=== PATIENT | female | born 1980 | race Caucasian/White ===

== ENCOUNTER 2018-10-22 20:49 | Inpatient (IN) | payer OTHER ==
--- NOTE | 2018-10-22 21:14 | PDOC ---
Rapid Medical Evaluation Chief Complaint: Chest Pain Time Seen by Provider: 10/22/18 21:07 Medical Evaluation: Allergies Allergy/AdvReac Type Severity Reaction Status Date / Time No Known Allergies Allergy Verified 10/22/18 21:06 Vital Signs Temp Pulse Resp BP Pulse Ox 98.1 F 75 18 112/74 97 10/22/18 21:03 10/22/18 21:03 10/22/18 21:03 10/22/18 21:03 10/22/18 21:03 10/22/18 21:09 I have performed a brief in-person evaluation of this patient. The patient presents with a chief complaint of: lower mid-sternal localized chest pain with pain to epigastric region and nausea x 5 days. saw GI who started on treatment with nexium for GERD and report symptoms persist and worsening since last night Pertinent physical exam findings: A&O x 3. mild epigastric pain w/o gaurding or rebound I have ordered the following: EKG, cbc,cmp, cardiac profile The patient will proceed to the ED for further evaluation Discharge Disposition - Diagnosis Epigastric abdominal pain, Nausea and vomiting Chest pain Qualifiers: Chest pain type: unspecified Qualified Code(s): R07.9 - Chest pain, unspecified - Discharge Dispostion Condition at time of disposition: Stable - Referrals - Patient Instructions - Post Discharge Activity
[2018-10-22 21:33] LABS: BASO % 0.5 % (0-2.0); EOS % 0.4 % (0-4.5); HEMATOCRIT 40.4 % (32.4-45.2); HEMOGLOBIN 13.4 GM/dL (10.7-15.3); LYMPH % 17.4 % (8-40); MCH 28.9 pg (25.7-33.7); MCHC 33.3 g/dl (32.0-36.0); MEAN CELL VOLUME 86.9 fl (80-96); MEAN PLT VOLUME 9.9 fl (7.5-11.1); MONO % 6.1 % (3.8-10.2); NEUT % 75.6 % (42.8-82.8); PLATELET COUNT 238 K/MM3 (134-434); RBC 4.64 M/mm3 (3.60-5.2); RDW 13.5 % (11.6-15.6); WHITE BLOOD COUNT 10.7 K/mm3 (4.0-10.0)
[2018-10-22] MEDS ORDERED: LIDOCAINE VISCOUS 2% ORAL/TOP 20 ML UNIT-DOSE CUP PO ONE (21:39)
[2018-10-22] MEDS ORDERED: MAG HYDROX/AL HYDROX/SIMETH 30 ML UNIT-DOSE CUP PO ONE (21:39)
[2018-10-22] MEDS ORDERED: LIDOCAINE VISCOUS 2% ORAL/TOP 20 ML UNIT-DOSE CUP ONE (21:42)
[2018-10-22] MEDS ORDERED: MAG HYDROX/AL HYDROX/SIMETH 30 ML UNIT-DOSE CUP ONE (21:43)
[2018-10-22] MEDS ORDERED: ONDANSETRON *ODT* 4 MG TABLET SL ONE (21:46)
[2018-10-22] MEDS ORDERED: ONDANSETRON *ODT* 4 MG TABLET ONE (21:47)
[2018-10-22 22:07] LABS: ALBUMIN 4.1 g/dl (3.4-5.0); ALK PHOS 71 U/L (45-117); ANION GAP 10 MMOL/L (8-16); BILIRUBIN,TOTAL 0.3 mg/dL (0.2-1); BLOOD UREA NITROGEN 16 mg/dL (7-18); CALCIUM 9.3 mg/dL (8.5-10.1); CHLORIDE 105 mmol/L (98-107); CO2 22 mmol/L (21-32); CREATININE 0.6 mg/dL (0.55-1.3); GLUCOSE,RANDOM 138 mg/dL (74-106); POTASSIUM 3.6 mmol/L (3.5-5.1); SGOT/AST 12 U/L (15-37); SGPT/ALT 23 U/L (13-61); SODIUM 137 mmol/L (136-145); TOT PROT 8.4 g/dl (6.4-8.2)
--- NOTE | 2018-10-22 22:31 | PDOC ---
History of Present Illness - General Chief Complaint: Chest Pain Stated Complaint: CHEST PAIN Time Seen by Provider: 10/22/18 21:07 History Source: Patient Exam Limitations: No Limitations - History of Present Illness Initial Comments: 10/22/18 21:58 HISTORY OF PRESENT ILLNESS: 38-year-old female presents emergency department for evaluation of 4 days of epigastric pain. Patient reports the pain has been constant at 10/10 over the 4 days. Patient does not murmur when she was doing when the pain had started but denies any aggravating or alleviating factors. Patient reports she has felt nauseous and has had 4 episodes of vomiting. Patient reports the vomitus was bilious but had not eaten prior to the vomiting. She denies any shortness of breath or cough. Patient was seen by financial administrator who started her on Reglan and told her to take Nexium. No recent travel or sick contacts. PAST MEDICAL HISTORY: Denies past medical history SURGICAL HISTORY: Denies ALLERGIES: No known drug allergies REVIEW OF SYSTEMS General/Constitutional: Denies fever or chills. Denies weakness, weight change. HEENT: Denies change in vision. Denies ear pain or discharge. Denies sore throat. Cardiovascular: Denies chest pain or shortness of breath. Respiratory: Denies cough, wheezing, or hemoptysis. Gastrointestinal: see HPI Genitourinary: Denies dysuria, frequency, or change in urination. Musculoskeletal: Denies joint or muscle swelling or pain. Denies neck or back pain. Skin and breasts: Denies rash or easy bruising. Neurologic: Denies headache, vertigo, loss of consciousness, or loss of sensation. Psychiatric: Denies depression or anxiety. Endocrine: Denies increased thirst. Denies abnormal weight change. Hematologic/Lymphatic: Denies anemia, easy bleeding, or history of blood clots. Allergic/Immunologic: Denies hives or skin allergy. Denies latex allergy. PHYSICAL EXAM General Appearance: Well-appearing, appropriately dressed. No apparent distress , no intoxication. HEENT: EOMI, PERRLA, normal ENT inspection, normal voice, TMs normal, pharynx normal. No conjunctival pallor. No photophobia, scleral icterus. Neck: Supple. Trachea midline. No tenderness, rigidity, carotid bruit, stridor , lymphadenopathy, or thyromegaly. Respiratory/Chest: Lungs CTAB. No shortness of breath, chest tenderness, respiratory distress, accessory muscle use. No crackles, rales, rhonchi, stridor , wheezing, dullness Cardiovascular: RRR. S1, S2. No JVD, murmur, bradycardia, tachycardia. Vascular Pulses: Dorsalis-Pedis (R): 2+, Dorsalis-Pedis (L): 2+ Gastrointestinal/Abdominal: Normal bowel sounds. Abdomen soft nondistended. Tenderness present to bilateral upper quadrants and the epigastrium. No rebound tenderness noted. No guarding or hernias noted. Lymphatic: No adenopathy, tenderness. Musculoskeletal/Extremities: Normal inspection. FROM of all extremities, normal capillary refill. Pelvis Stable. No CVA tenderness. No tenderness to extremities, pedal edema, swelling, erythema or deformity. Integumentary: Appropriate color, dry, warm. No cyanosis, erythema, jaundice or rash Neurologic: school fundraising director II-XII intact. Fully oriented, alert. Appropriate mood/affect. Motor strength 5/5. No appreciable EOM palsy, facial droop or sensory deficit. Past History - Past Medical History Allergies/Adverse Reactions: Allergies Allergy/AdvReac Type Severity Reaction Status Date / Time No Known Allergies Allergy Verified 10/22/18 21:06 Home Medications: Ambulatory Orders Acetaminophen [Tylenol .Regular Strength -] 650 mg PO Q6H PRN #0 tablet Vitamins (Sjr) - 1 tab PO DAILY #0 tablet 08/23/13 COPD: No - Reproductive History (#): 1 Para: 0 - Suicide/Smoking/Psychosocial Hx Smoking History: Never smoked Have you smoked in the past 12 months: No Hx Alcohol Use: No Drug/Substance Use Hx: No Substance Use Type: None *Physical Exam - Vital Signs Last Vital Signs Temp Pulse Resp BP Pulse Ox 98.1 F 75 18 112/74 97 10/22/18 21:03 10/22/18 21:03 10/22/18 21:03 10/22/18 21:03 10/22/18 21:03 ED Treatment Course - LABORATORY CBC & Chemistry Diagram: 10/22/18 21:17 10/22/18 21:17 - ADDITIONAL ORDERS Additional order review: Laboratory Results 10/22/18 21:17 Creatine Kinase Cancelled Troponin I Cancelled 10/22/18 21:17 RBC 4.64 MCV 86.9 MCHC 33.3 RDW 13.5 MPV 9.9 Neutrophils % 75.6 Lymphocytes % 17.4 D Monocytes % 6.1 Eosinophils % 0.4 D Basophils % 0.5 - RADIOLOGY Radiology Studies Ordered: Category Date Time Status ABDOMEN US -LIMITED [US] Stat Ultrasound 10/22/18 21:47 Ordered - Medications Given in the ED: ED Medications Discontinued Medications Generic Name Dose Route Start Last Admin Trade Name Henriq PRN Reason Stop Dose Admin Al Hydroxide/Mg Hydroxide 30 ml 10/22/18 21:39 10/22/18 21:47 Mylanta Oral Suspension - PO 10/22/18 21:40 30 ml ONCE ONE Administration Lidocaine HCl 20 ml 10/22/18 21:39 10/22/18 21:47 Xylocaine 2% Viscous Oral - PO 10/22/18 21:40 20 ml ONCE ONE Administration Ondansetron HCl 4 mg 10/22/18 21:46 10/22/18 21:47 Zofran Odt - SL 10/22/18 21:47 4 mg ONCE ONE Administration Medical Decision Making - Medical Decision Making 10/22/18 22:31 A/P: 38-year-old woman with epigastric pain for 4 days Differential diagnosis includes but is not limited to-ACS, pancreatitis, hepatitis, cholecystitis, cold of cholelithiasis, GERD, pneumonia Labs including cardiac profile and lipase Urinalysis, urine culture, and urine EKG Chest x-ray Right upper quadrant ultrasound Viscous lidocaine Maalox Reassess 10/23/18 00:44 Ultrasound as read by imaging solution sales senior executive: Moderate suspicion for cholecystitis, possibly due to a 2.3 cm stone impacted in the gallbladder neck. Dr. Torres has been contacted who requested the patient is NPO for OR tomorrow. Patient does not have a primary doctor and will admit [facility]. 10/23/18 01:59 Case has been discussed with the hospitalist service who accepts patient for [facility] admission. *DC/Admit/Observation/Transfer Diagnosis at time of Disposition: Cholecystitis - Discharge Dispostion Condition at time of disposition: Stable Decision to Admit order: Yes - Referrals - Patient Instructions - Post Discharge Activity
[2018-10-22 22:42] LABS: LIPASE 101 U/L (73-393)
[2018-10-23] MEDS ORDERED: morphine CARPU-JECT 4 MG/1 ML DISP.SYRIN IVPUSH ONE (00:45)
[2018-10-23] MEDS ORDERED: ONDANSETRON 4 MG/2 ML VIAL IVPUSH ONE ×2 (00:45→09:27)
[2018-10-23] MEDS ORDERED: morphine SULFATE 4 MG/ML VIAL ONE (00:58)
[2018-10-23] MEDS ORDERED: ONDANSETRON 4 MG/2 ML VIAL ONE (00:58)
[2018-10-23] MEDS: SODIUM CHLORIDE 1,000 ML IV SCH ×2 (01:02→09:02)
[2018-10-23] MEDS ORDERED: MORPHINE SULFATE 2 MG/ML VIAL IVPUSH PRN (02:12)
[2018-10-23 02:22] LABS: INR 1.17 (0.83-1.09); PROTHROMBIN TIME (PATIENT) 13.8 SEC (9.7-13.0)
--- NOTE | 2018-10-23 02:22 | PN ---
Teaching Attending Note Name of Resident: Jose Marin ATTENDING PHYSICIAN STATEMENT I saw and evaluated the patient. I reviewed the resident's note and discussed the case with the resident. I agree with the resident's findings and plan as documented. SUBJECTIVE: Patient is a 38-year-old woman presents emergency department for evaluation of 4 days of constant epigastric and RUQ abdominal. Patient reports the pain had been off and on for a couple of months, but became constant at 10/10 over the 4 days. Patient denies any aggravating or alleviating factors. Patient reports she has felt nauseous and has had 4 episodes of vomiting. Patient reports the vomitus was bilious but had not eaten prior to the vomiting. She denies any shortness of breath or cough. Patient was seen by lead portfolio manager who started her on Reglan and told her to take Nexium and had planned an EGD for 05/15. She does not drink alcohol, smoke or use illicit drugs, but drinks a lot of coffee. She is , has a 4 year old daughter and works as a dental television production assistant. Her LMP was last week. Her pain was relieved with 4 mg IV morphine in the ER. OBJECTIVE: Alert Vital Signs Period Temp Pulse Resp BP Sys/[place] Pulse Ox Last 24 Hr 98.1 F 75 18 112/74 97 HEENT: No Jaundice, eye redness or discharge, PERRLA, EOMI. Normocephalic, atraumatic. External ears are normal and hearing is grossly intact. No nasal discharge. Neck: Supple, nontender. No palpable adenopathy or thyromegaly. No JVD Chest: Good effort. Clear to auscultation and percussion. Heart: Regular. No S3, rub or murmur Abdomen: Not distended, soft, nontender and no HSM. No rebound or guarding. Normal bowel sounds. Ext: Peripheral pulses intact. No leg edema. Skin: Warm and dry. No petechiae, rash or ecchymosis. Neuro: Alert. Oriented x3. CN 2-12 grossly intact. Sensation grossly intact in all four extremities and DTR are symmetric. Psych: Appropriate mood and affect. Good insight. Current Medications Generic Name Dose Route Start Last Admin Trade Name Freq PRN Reason Stop Dose Admin Sodium Chloride 1,000 mls @ 125 mls/hr 10/23/18 00:45 10/23/18 01:02 Normal Saline - IV 125 mls/hr ASDIR LAUREEN Administration Piperacillin Sod/Tazobactam 50 mls @ 100 mls/hr 10/24/18 02:00 Sod 3.375 gm/ Dextrose IVPB Q8H-IV LAUREEN Protocol Piperacillin Sod/Tazobactam 50 mls @ 100 mls/hr 10/23/18 02:30 Sod 3.375 gm/ Dextrose IVPB 10/23/18 18:29 Q8H-IV LAUREEN Protocol Morphine Sulfate 2 mg 10/23/18 02:12 Morphine Sulfate IVPUSH Q4H PRN PAIN LEVEL 6-10 Home Medications Medication Instructions Recorded Acetaminophen [Tylenol .Regular 650 mg PO Q6H PRN #0 tablet 08/23/13 Strength -] Vitamins (Sjr) - 1 tab PO DAILY #0 tablet 08/23/13 Abnormal Lab Results 10/22/18 10/22/18 10/23/18 21:17 21:17 01:30 WBC 10.7 H Absolute Neuts (auto) 8.1 H PT with INR 13.80 H INR 1.17 H Random Glucose 138 H AST 12 L Total Protein 8.4 H ASSESSMENT AND PLAN: 1. Cholecystitis and cholelithiasis - Ultrasound as read by imaging international coordinator showed moderate suspicion for cholecystitis, possibly due to a 2.3 cm stone impacted in the gallbladder neck. Surgeon -Dr. Torres consulted by the ER staff. Being kept NPO for surgery tomorrow. Will treat with IV NS, IV Zosyn and get INR and use IV morphine 2 mg q 6 hours PRN for pain control. EKG shows NSR with T- wave inversion in V1-3. Troponin is negative. Repeat EKG pending. 2. DVT prophylaxis - Lovenox 40 mg SQ q 24 hours. 3. Advance directives - Full code
[2018-10-23] MEDS ORDERED: PIPERACILLIN/TAZOB 3.375 GM 3.375 GM/50 ML BAG IVPB ONE (02:43)
[2018-10-23] MEDS: PIPERACILLIN/TAZOB 3.375 GM 3.375 GM in DEXTROSE 5%-WATER - 50 ML IVPB SCH ×4 (02:49→23:33)
[2018-10-23 02:53] LABS: MAGNESIUM 2.1 mg/dL (1.8-2.4); PHOSPHOROUS 2.6 mg/dL (2.5-4.9)
--- NOTE | 2018-10-23 03:41 | HP ---
CHIEF COMPLAINT: chest/ epigastric pain(points) PCP: HISTORY OF PRESENT ILLNESS: Pt. is a 38 y.o. F presenting with a 2 month history of intermittent abdominal pain. Pt. states that since Friday the pain has gotten worse and has been constant. Pt. states rd ton Friday she went to see a customer contact sales associate who scheduled an EGD for 11/04 and prescribed her reglan and nexium which the Pt. denies helped her pain. Pt. then decided to come to the ER. Abdominal US was positive for a 2.3 cm stone in the gallbladder neck mildly suspicious for cholecystitis. Pt. endorses nausea and vomiting x 4 with the last time being @ 5:30pm. Pt. states that after the bilious vomit she spat up a minute amount of blood. Pt. denies coughing or vomiting any more blood. Pt. endorses decreased PO intake due to decreased appetite, dizziness, and chills. Pt. denies any diarrhea, constipation, fever, blood in the stool or urine. ER course was notable for: (1) labs, EKG, Abd. Us (2)Zofran, Morphine (3)Surgery Consult Recent Travel: No PAST MEDICAL HISTORY: GERD? PAST SURGICAL HISTORY: Denies Social History: Smoking: Denies Alcohol: Denies Drugs:Denies Diet: Pt. endorses fatty food diet and drinking lots of iced coffee daily. Family History: Denies Allergies No Known Allergies Allergy (Verified 10/22/18 21:06) HOME MEDICATIONS: Home Medications Medication Instructions Recorded Acetaminophen [Tylenol .Regular 650 mg PO Q6H PRN #0 tablet 08/23/13 Strength -] Vitamins (Sjr) - 1 tab PO DAILY #0 tablet 08/23/13 REVIEW OF SYSTEMS As per HPI PHYSICAL EXAMINATION Vital Signs - 24 hr 10/22/18 10/23/18 21:03 02:46 Temperature 98.1 F 98.6 F Pulse Rate 75 Pulse Rate [ 78 Apical] Respiratory 18 18 Rate Blood Pressure 112/74 Blood Pressure 117/69 [Left] O2 Sat by Pulse 97 98 Oximetry (%) GENERAL: Awake, alert, and fully oriented, in no acute distress. HEAD: Normal with no signs of trauma. EYES: Pupils equal, round and reactive to light, extraocular movements intact, sclera anicteric, conjunctiva clear. EARS, NOSE, THROAT: Ears normal, nares patent, oropharynx clear without exudates. Moist mucous membranes. NECK: Normal range of motion, supple without lymphadenopathy, JVD, or masses. LUNGS: Breath sounds equal, clear to auscultation bilaterally. No wheezes, and no crackles. No accessory muscle use. HEART: Regular rate and rhythm, normal S1 and S2 without murmur, rub or gallop. ABDOMEN: Soft, RUQ and epigastric tenderness, not distended, normoactive bowel sounds, no guarding, no rebound, Scott + MUSCULOSKELETAL: Normal range of motion at all joints. No bony deformities or tenderness. No CVA tenderness. UPPER EXTREMITIES: 2+ radial pulses, warm, well-perfused. No cyanosis. No clubbing. No peripheral edema. LOWER EXTREMITIES: 2+ dorsal pedal pulses, warm, well-perfused. No calf tenderness. No peripheral edema. NEUROLOGICAL: Normal speech. PSYCHIATRIC: Cooperative. Good eye contact. Appropriate mood and affect. SKIN: Warm, dry, normal turgor, no rashes or lesions noted, normal capillary refill. Laboratory Results - last 24 hr 10/22/18 10/22/18 10/22/18 21:17 21:17 21:17 WBC 10.7 H RBC 4.64 Hgb 13.4 Hct 40.4 D MCV 86.9 MCH 28.9 MCHC 33.3 RDW 13.5 Plt Count 238 D MPV 9.9 Absolute Neuts (auto) 8.1 H Neutrophils % 75.6 Lymphocytes % 17.4 D Monocytes % 6.1 Eosinophils % 0.4 D Basophils % 0.5 Nucleated RBC % 0 PT with INR INR Sodium 137 Potassium 3.6 Chloride 105 Carbon Dioxide 22 Anion Gap 10 BUN 16 Creatinine 0.6 Creat Clearance w eGFR 111.88 Random Glucose 138 H Calcium 9.3 Total Bilirubin 0.3 AST 12 L ALT 23 Alkaline Phosphatase 71 Creatine Kinase 72 Cancelled Troponin I < 0.02 Cancelled Total Protein 8.4 H Albumin 4.1 Lipase 101 Urine HCG, Qual 10/22/18 10/22/18 10/23/18 22:30 22:57 01:30 WBC RBC Hgb Hct MCV MCH MCHC RDW Plt Count MPV Absolute Neuts (auto) Neutrophils % Lymphocytes % Monocytes % Eosinophils % Basophils % Nucleated RBC % PT with INR 13.80 H INR 1.17 H Sodium Potassium Chloride Carbon Dioxide Anion Gap BUN Creatinine Creat Clearance w eGFR Random Glucose Calcium Total Bilirubin AST ALT Alkaline Phosphatase Creatine Kinase Troponin I Total Protein Albumin Lipase Cancelled Urine HCG, Qual Negative ASSESSMENT/PLAN: Pt. is a 38 y.o. F presenting with a 2 month history of intermittent abdominal pain that has acutely worsened in the last 4 days. #Abdominal Pain Likely cholecystitis given Abd. US findings Surgery consult (Dr. Torres) appreciated IVF Morphine 2mg Q4H Zofran 4mg Q4H PRN EKG x 2 showed normal QTc however chronic TWI in V1-V3 Tank Tender Pt. on Diet and nutrition #FEN NS@125 monitor electrolytes and replete as needed NPO #DVT Ppx. SCDs only, for OR in AM Visit type - Emergency Visit Emergency Visit: Yes ED Registration Date: 10/23/18 Care time: The patient presented to the Emergency Department on the above date and was hospitalized for further evaluation of their emergent condition. - New Patient This patient is new to me today: Yes Date on this admission: 10/23/18 - Critical Care Critical Care patient: No
[2018-10-23] MEDS ORDERED: traMADol HCL 50 MG TABLET PO ONE (06:31)
--- NOTE | 2018-10-23 07:20 | PN ---
Physical Exam: SUBJECTIVE: Patient seen and examined at bedside. no acute events since admission. c/o abd pain. NPO for OR today. denies fever, chills, cp, sob, diarrhea, urinary sxs OBJECTIVE: Vital Signs Period Temp Pulse Resp BP Sys/[place] Pulse Ox Last 24 Hr 97.8 F-98.8 F 66-78 18-18 103-117/69-74 97-98 GENERAL: AOX3 NAD HEAD: NCAT EYES: Pupils equal, round and reactive to light, extraocular movements intact, sclera anicteric, conjunctiva clear. EARS, NOSE, THROAT: Ears normal, nares patent, oropharynx clear without exudates. Moist mucous membranes. NECK: Normal range of motion, supple without lymphadenopathy, JVD, or masses. LUNGS: CTAB HEART: RRR, normal S1 and S2 without murmur, rub or gallop. ABDOMEN: Soft, RUQ and epigastric tenderness, not distended, normoactive bowel sounds, no guarding, no rebound, Scott + MUSCULOSKELETAL: Normal range of motion at all joints. No bony deformities or tenderness. No CVA tenderness. UPPER EXTREMITIES: 2+ radial pulses, warm, well-perfused. No cyanosis. No clubbing. No peripheral edema. LOWER EXTREMITIES: 2+ dorsal pedal pulses, warm, well-perfused. No calf tenderness. No peripheral edema. NEUROLOGICAL: Normal speech. strength sensation grossly intact PSYCHIATRIC: Cooperative. Good eye contact. Appropriate mood and affect. SKIN: Warm, dry, normal turgor, no rashes or lesions noted, normal capillary refill. Laboratory Results - last 24 hr 10/22/18 10/22/18 10/22/18 21:17 21:17 21:17 WBC 10.7 H RBC 4.64 Hgb 13.4 Hct 40.4 D MCV 86.9 MCH 28.9 MCHC 33.3 RDW 13.5 Plt Count 238 D MPV 9.9 Absolute Neuts (auto) 8.1 H Neutrophils % 75.6 Lymphocytes % 17.4 D Monocytes % 6.1 Eosinophils % 0.4 D Basophils % 0.5 Nucleated RBC % 0 PT with INR INR Sodium 137 Potassium 3.6 Chloride 105 Carbon Dioxide 22 Anion Gap 10 BUN 16 Creatinine 0.6 Creat Clearance w eGFR 111.88 Random Glucose 138 H Calcium 9.3 Phosphorus Magnesium Total Bilirubin 0.3 AST 12 L ALT 23 Alkaline Phosphatase 71 Creatine Kinase 72 Cancelled Troponin I < 0.02 Cancelled Total Protein 8.4 H Albumin 4.1 Lipase 101 Urine HCG, Qual Blood Type Antibody Screen 10/22/18 10/22/18 10/23/18 22:30 22:57 01:30 WBC RBC Hgb Hct MCV MCH MCHC RDW Plt Count MPV Absolute Neuts (auto) Neutrophils % Lymphocytes % Monocytes % Eosinophils % Basophils % Nucleated RBC % PT with INR 13.80 H INR 1.17 H Sodium Potassium Chloride Carbon Dioxide Anion Gap BUN Creatinine Creat Clearance w eGFR Random Glucose Calcium Phosphorus Magnesium Total Bilirubin AST ALT Alkaline Phosphatase Creatine Kinase Troponin I Total Protein Albumin Lipase Cancelled Urine HCG, Qual Negative Blood Type Antibody Screen 10/23/18 10/23/18 01:30 03:00 WBC RBC Hgb Hct MCV MCH MCHC RDW Plt Count MPV Absolute Neuts (auto) Neutrophils % Lymphocytes % Monocytes % Eosinophils % Basophils % Nucleated RBC % PT with INR INR Sodium Potassium Chloride Carbon Dioxide Anion Gap BUN Creatinine Creat Clearance w eGFR Random Glucose Calcium Phosphorus 2.6 Magnesium 2.1 Total Bilirubin AST ALT Alkaline Phosphatase Creatine Kinase Troponin I Total Protein Albumin Lipase Urine HCG, Qual Blood Type O POSITIVE Antibody Screen Negative Active Medications Generic Name Dose Route Start Last Admin Trade Name Freq PRN Reason Stop Dose Admin Sodium Chloride 1,000 mls @ 125 mls/hr 10/23/18 00:45 10/23/18 01:02 Normal Saline - IV 125 mls/hr ASDIR LAUREEN Administration Piperacillin Sod/Tazobactam 50 mls @ 100 mls/hr 10/24/18 02:00 Sod 3.375 gm/ Dextrose IVPB Q8H-IV LAUREEN Protocol Piperacillin Sod/Tazobactam 50 mls @ 100 mls/hr 10/23/18 02:30 10/23/18 02:49 Sod 3.375 gm/ Dextrose IVPB 10/23/18 18:29 100 mls/hr Q8H-IV LAUREEN Administration Protocol 1043-0004 US/ABDOMEN US -LIMITED Rule out cholecystitis Right upper abdomen ultrasound. The liver measures 16.8 cm in sagittal length with a slightly dense and coarse echotexture. Gallbladder is adequately distended without intraluminal stones the largest in the region of the gallbladder neck measuring 2.2 cm. There is mild thickening of the gallbladder wall measuring up to 5 mm without evidence of pericholecystic free fluid. No intra or extrahepatic bile duct dilatation is seen. The common bile duct measures 5 mm in diameter. The right kidney measures 10.9 cm sagittal length and appears unremarkable. Visualized portion of the pancreas appears unremarkable Visualized portion of the proximal abdominal aorta and inferior vena cava appear unremarkable. Normal flow in the main portal vein. IMPRESSION: Intraluminal stones with the largest in the region of the gallbladder neck measuring 2.2 cm with gallbladder wall thickening and without evidence of pericholecystic free fluid. Cannot rule out cholecystitis. Correlate clinically for further evaluation. ASSESSMENT/PLAN: 38 y.o. F p/w 2 month history of intermittent abdominal pain that has acutely worsened in the last 4 days. #Abdominal Pain - Likely cholecystitis given Abd. US findings Surgery consult (Dr. Torres) IVF pain ctl - dilauded 1mg q4h , tylenol IV. Morphine and tramadol have been ineffective Zofran 4mg Q6H PRN EKG x 2 showed normal QTc however chronic TWI in V1-V3, qtc 424 Sound Assistant Pt. on Diet and nutrition #FEN NS@125 monitor electrolytes and replete as needed NPO for OR #DVT Ppx. SCDs only, for OR in AM Dispo m/s Visit type - Emergency Visit Emergency Visit: Yes ED Registration Date: 10/23/18 Care time: The patient presented to the Emergency Department on the above date and was hospitalized for further evaluation of their emergent condition. - New Patient This patient is new to me today: Yes Date on this admission: 10/23/18 - Critical Care Critical Care patient: No
[2018-10-23 08:00] LABS: BASO % 0.3 % (0-2.0); EOS % 0.6 % (0-4.5); HEMATOCRIT 39.5 % (32.4-45.2); HEMOGLOBIN 13.1 GM/dL (10.7-15.3); LYMPH % 23.1 % (8-40); MCH 28.9 pg (25.7-33.7); MCHC 33.2 g/dl (32.0-36.0); MEAN CELL VOLUME 87.1 fl (80-96); MONO % 9.8 % (3.8-10.2); NEUT % 66.2 % (42.8-82.8); PLATELET COUNT 209 K/MM3 (134-434); RBC 4.53 M/mm3 (3.60-5.2); RDW 13.5 % (11.6-15.6); WHITE BLOOD COUNT 8.8 K/mm3 (4.0-10.0)
[2018-10-23 08:25] LABS: ALBUMIN 3.6 g/dl (3.4-5.0); ALK PHOS 62 U/L (45-117); ANION GAP 7 MMOL/L (8-16); BILIRUBIN,TOTAL 0.5 mg/dL (0.2-1); BLOOD UREA NITROGEN 11 mg/dL (7-18); CALCIUM 8.7 mg/dL (8.5-10.1); CHLORIDE 107 mmol/L (98-107); CO2 25 mmol/L (21-32); CREATININE 0.6 mg/dL (0.55-1.3); GLUCOSE,RANDOM 106 mg/dL (74-106); MAGNESIUM 2.4 mg/dL (1.8-2.4); PHOSPHOROUS 3.2 mg/dL (2.5-4.9); POTASSIUM 3.6 mmol/L (3.5-5.1); SGOT/AST 9 U/L (15-37); SGPT/ALT 20 U/L (13-61); SODIUM 138 mmol/L (136-145); TOT PROT 7.3 g/dl (6.4-8.2)
[2018-10-23] MEDS ORDERED: ACETAMINOPHEN 1000 MG/100 ML VIAL (NON FORMULARY) IVPB ONE ×2 (09:26→22:09)
--- NOTE | 2018-10-23 10:24 | EKG ---
Test Reason : Blood Pressure : / mmHG Vent. Rate : 056 BPM Atrial Rate : 056 BPM P-R Int : 148 ms QRS Dur : 084 ms QT Int : 440 ms P-R-T Axes : 004 030 009 degrees QTc Int : 424 ms SINUS BRADYCARDIA WITH SINUS ARRHYTHMIA NONSPECIFIC T WAVE ABNORMALITY NO PREVIOUS ECGS AVAILABLE Confirmed by TAPAN SCHREIBER MD ([id number]) on 10/23/2018 10:24:16 AM Referred By: Confirmed By:TAPAN SCHREIBER MD
--- NOTE | 2018-10-23 10:30 | EKG ---
Test Reason : Blood Pressure : / mmHG Vent. Rate : 069 BPM Atrial Rate : 069 BPM P-R Int : 156 ms QRS Dur : 078 ms QT Int : 412 ms P-R-T Axes : 062 054 033 degrees QTc Int : 441 ms NORMAL SINUS RHYTHM T WAVE ABNORMALITY, CONSIDER ANTERIOR ISCHEMIA ABNORMAL ECG NO PREVIOUS ECGS AVAILABLE Confirmed by TAPAN SCHREIBER MD ([id number]) on 10/23/2018 10:30:24 AM Referred By: Confirmed By:TAPAN SCHREIBER MD
[2018-10-23] MEDS ORDERED: ONDANSETRON 4 MG/2 ML VIAL IVPUSH PRN ×3 (11:19→22:09)
[2018-10-23] MEDS ORDERED: PIPERACILLIN/TAZOBACTAM 3.375 GM VIAL IVPB ONE ×2 (11:49→23:23)
[2018-10-23] MEDS ORDERED: DEXTROSE 5%-WATER - 50 ML IVPB ONE ×2 (11:49→23:24)
[2018-10-23] MEDS ORDERED: HYDROmorphone HCl 2 MG/ML VIAL IVPB PRN (12:46)
--- NOTE | 2018-10-23 16:59 | CONSULT ---
Consult Consult Specialty:: Surgery Reason for Consultation:: Abdominal pain , acute cholecystitis, with obstruction. - History of Present Illness Chief Complaint: Abdominal pain x 2 days, with nausea. - History Source History Provided By: Patient Limitations to Obtaining History: No Limitations - Past Medical History ...LMP: 04/29/14 ...LMP Comment: Last week ...: No - Alcohol/Substance Use Hx Alcohol Use: No - Smoking History Smoking history: Never smoked Have you smoked in the past 12 months: No Home Medications - Allergies Allergies/Adverse Reactions: Allergies Allergy/AdvReac Type Severity Reaction Status Date / Time No Known Allergies Allergy Verified 10/22/18 21:06 - Home Medications Home Medications: Ambulatory Orders Acetaminophen [Tylenol .Regular Strength -] 650 mg PO Q6H PRN #0 tablet Vitamins (Sjr) - 1 tab PO DAILY #0 tablet 08/23/13 Physical Exam Vital Signs: Vital Signs Temperature 98.5 F 10/23/18 14:53 Pulse Rate 75 10/23/18 14:53 Respiratory Rate 18 10/23/18 14:53 Blood Pressure 110/71 10/23/18 14:53 O2 Sat by Pulse Oximetry (%) 98 10/23/18 09:00 Labs: CBC, BMP 10/23/18 07:00 10/23/18 07:00 Imaging - Results Ultrasound: Report Reviewed, Image Reviewed (Gallstone impacted an the cystic duct.) Problem List - Problems (1) Calculus of gallbladder with acute cholecystitis with obstruction Code(s): K80.01 - CALCULUS OF GALLBLADDER W ACUTE CHOLECYSTITIS W OBSTRUCTION (2) Nausea and vomiting Code(s): R11.2 - NAUSEA WITH VOMITING, UNSPECIFIED (3) Nausea and vomiting Code(s): R11.2 - NAUSEA WITH VOMITING, UNSPECIFIED (4) Abdominal pain, acute, right upper quadrant Code(s): R10.11 - RIGHT UPPER QUADRANT PAIN Assessment/Plan Acute cholecystitis with obstruction . Plan : laparoscopic cholecystectomy , possible open. Patient is explained , of the procedure , with risks, benefits and complications. Consent obtained.
[2018-10-23] MEDS ORDERED: ACETAMINOPHEN 1000 MG/100 ML VIAL (NON FORMULARY) IVPB PRN ×2 (17:00→21:52)
[2018-10-23] MEDS ORDERED: BUPIVACAINE HCL/PF 0.5% (5MG/ML) 10 ML VIAL ONE (19:01)
[2018-10-23] MEDS ORDERED: PROPOFOL 20 ML ONE (19:10)
[2018-10-23] MEDS ORDERED: LIDOCAINE HCL/PF 2% SDV 5ML VIAL ONE (19:10)
[2018-10-23] MEDS ORDERED: fentaNYL CITRATE 250 MCG/5 ML VIAL ONE ×2 (19:10→20:40)
[2018-10-23] MEDS ORDERED: ROCURONIUM BROMIDE 50 MG/5 ML VIAL ONE (19:11)
[2018-10-23] MEDS ORDERED: ceFAZolin SODIUM 1 GM VIAL IVPB ONE (19:30)
--- NOTE | 2018-10-23 19:47 | PN ---
Teaching Attending Note Name of Resident: Satish Lopez ATTENDING PHYSICIAN STATEMENT I saw and evaluated the patient. I reviewed the resident's note and discussed the case with the resident. I agree with the resident's findings and plan as documented. SUBJECTIVE: Ongoing abdominal discomfort, improved nausea, no further vomiting. OBJECTIVE: Afebrile, Hemodynamically Stable. Last Vital Signs Temp Pulse Resp BP Pulse Ox 98.1 F 69 18 108/65 98 10/23/18 18:20 10/23/18 18:20 10/23/18 18:20 10/23/18 18:20 10/23/18 09:00 HEENT - Atraumatic, Normocephalic. Heart - S1, S2, RRR Lungs - clear to auscultation Abdomen - RUQ tenderness, Soft. Bowel Sounds normal. Extremities - No edema, no calf tednerness. Laboratory Results - last 24 hr 10/22/18 10/22/18 10/22/18 21:17 21:17 21:17 WBC 10.7 H RBC 4.64 Hgb 13.4 Hct 40.4 D MCV 86.9 MCH 28.9 MCHC 33.3 RDW 13.5 Plt Count 238 D MPV 9.9 Absolute Neuts (auto) 8.1 H Neutrophils % 75.6 Lymphocytes % 17.4 D Monocytes % 6.1 Eosinophils % 0.4 D Basophils % 0.5 Nucleated RBC % 0 PT with INR INR PTT (Actin FS) Sodium 137 Potassium 3.6 Chloride 105 Carbon Dioxide 22 Anion Gap 10 BUN 16 Creatinine 0.6 Creat Clearance w eGFR 111.88 Random Glucose 138 H Calcium 9.3 Phosphorus Magnesium Total Bilirubin 0.3 AST 12 L ALT 23 Alkaline Phosphatase 71 Creatine Kinase 72 Cancelled Troponin I < 0.02 Cancelled Total Protein 8.4 H Albumin 4.1 Lipase 101 Urine HCG, Qual Blood Type Antibody Screen 10/22/18 10/22/18 10/23/18 22:30 22:57 01:30 WBC RBC Hgb Hct MCV MCH MCHC RDW Plt Count MPV Absolute Neuts (auto) Neutrophils % Lymphocytes % Monocytes % Eosinophils % Basophils % Nucleated RBC % PT with INR 13.80 H INR 1.17 H PTT (Actin FS) Sodium Potassium Chloride Carbon Dioxide Anion Gap BUN Creatinine Creat Clearance w eGFR Random Glucose Calcium Phosphorus Magnesium Total Bilirubin AST ALT Alkaline Phosphatase Creatine Kinase Troponin I Total Protein Albumin Lipase Cancelled Urine HCG, Qual Negative Blood Type Antibody Screen 10/23/18 10/23/18 10/23/18 01:30 03:00 07:00 WBC 8.8 RBC 4.53 Hgb 13.1 Hct 39.5 MCV 87.1 MCH 28.9 MCHC 33.2 RDW 13.5 Plt Count 209 MPV 10.0 Absolute Neuts (auto) 5.9 Neutrophils % 66.2 Lymphocytes % 23.1 D Monocytes % 9.8 Eosinophils % 0.6 Basophils % 0.3 Nucleated RBC % 0 PT with INR INR PTT (Actin FS) Sodium Potassium Chloride Carbon Dioxide Anion Gap BUN Creatinine Creat Clearance w eGFR Random Glucose Calcium Phosphorus 2.6 Magnesium 2.1 Total Bilirubin AST ALT Alkaline Phosphatase Creatine Kinase Troponin I Total Protein Albumin Lipase Urine HCG, Qual Blood Type O POSITIVE Antibody Screen Negative 10/23/18 10/23/18 07:00 07:00 WBC RBC Hgb Hct MCV MCH MCHC RDW Plt Count MPV Absolute Neuts (auto) Neutrophils % Lymphocytes % Monocytes % Eosinophils % Basophils % Nucleated RBC % PT with INR INR PTT (Actin FS) 32.2 Sodium 138 Potassium 3.6 Chloride 107 Carbon Dioxide 25 Anion Gap 7 L BUN 11 Creatinine 0.6 Creat Clearance w eGFR 111.88 Random Glucose 106 Calcium 8.7 Phosphorus 3.2 Magnesium 2.4 Total Bilirubin 0.5 AST 9 L ALT 20 Alkaline Phosphatase 62 Creatine Kinase Troponin I Total Protein 7.3 Albumin 3.6 Lipase Urine HCG, Qual Blood Type Antibody Screen Current Medications Generic Name Dose Route Start Last Admin Trade Name Freq PRN Reason Stop Dose Admin Acetaminophen 1,000 mg 10/23/18 17:00 10/23/18 15:14 Ofirmev Injection - IVPB 1,000 mg Q6H PRN Administration PAIN LEVEL 6-10 Hydromorphone HCl 1 mg 10/23/18 12:46 Dilaudid Vial - IVPB Q4H PRN PAIN LEVEL 7 - 10 Sodium Chloride 1,000 mls @ 125 mls/hr 10/23/18 00:45 10/23/18 09:02 Normal Saline - IV 125 mls/hr ASDIR LAUREEN Administration Piperacillin Sod/Tazobactam 50 mls @ 100 mls/hr 10/24/18 02:00 Sod 3.375 gm/ Dextrose IVPB Q8H-IV LAUREEN Protocol Ondansetron HCl 4 mg 10/23/18 11:19 Zofran Injection IVPUSH Q6H PRN NAUSEA ASSESSMENT/PLAN: 38 year old female with 2 month history of intermittent abdominal discomfort, presents with 3 day history of progressively worsening RUQ/Epigastric pain with associated nausea and vomiting. She was recently seen by Gastroenterology and prescribed Nexium and Reglan, with little effect on symptoms. 1. Acute Cholecystitis Abdominal US - 2.3cm stone in GB neck with GB wall thickening Surgery consulted - for OR 10/24 IV Zofran Dilaudid/Zofran prn. NPO, IV Fluids DVT Px - SCDs (for OR in AM)
[2018-10-23] MEDS ORDERED: BUPIVACAINE HCL/PF 0.5% (5MG/ML) 10 ML VIAL IJ ONE (21:14)
[2018-10-23] MEDS ORDERED: GLYCOPYRROLATE 0.2 MG/1 ML VIAL ONE ×2 (21:17)
[2018-10-23] MEDS ORDERED: NEOSTIGMINE METHYLSULFATE 0.5 MG/ML - 10 ML MDV ONE (21:17)
--- NOTE | 2018-10-23 21:28 | OP ---
Operative Note - Note: Operative Date: 10/23/18 Pre-Operative Diagnosis: Calculus of gallbladder with Acute cholecystitis Operation: Laparoscopic cholecystectomy with extensive lysis of adhesions. Findings: Acute cholecystitis with empyema of the gallbladder, adhesions of stomach and duodenum to the gallbladder. Post-Operative Diagnosis: Other (Acute cholecystitis with obstruction and empyema of the gallbladder.) Surgeon: Aneesh Torres [employer] Consultant: Cynthia Chi Anesthesia: General Specimens Removed: Gallbladder with calculus,. Gallbladder fluid. Estimated Blood Loss (mls): 25 Operative Report Dictated: Yes
[2018-10-23] MEDS ORDERED: ACETAMINOPHEN INJECTION 100 ML IVPB ONE (21:33)
--- NOTE | 2018-10-23 21:38 | SURG ---
Surgery Community Midwife Note Community Midwife: Cynthia Chi PA-C (Suzy) Date of Service: 10/23/18 Diagnosis: Calculus of gallbladder with Acute cholecystitis Procedure: Laparoscopic cholecystectomy with extensive lysis of adhesions. I was present for the entirety of the operative procedure. For further detail, please refer to operative report.
--- NOTE | 2018-10-23 21:43 | PN ---
Progress Note (short form) - Note Progress Note: Pt s/p Lap bo for Calculus of gallbladder with Acute cholecystitis. Culture sent from OR. Pt to be initiated on Ceftriaxone 2g q24hrs, Zosyn 3.375mg q6hrs per attending. MERRITT drain in place. ID consult (Dr Otto) placed. Above d/w resident, Dr Anju Gunter
[2018-10-23] MEDS ORDERED: CEFTRIAXONE 2 GM-D5W BAG 2 GM/50 ML BAG IVPB SCH ×2 (21:45→22:00)
[2018-10-23] MEDS ORDERED: SODIUM CHLORIDE 1,000 ML IV SCH (21:52)
[2018-10-23] MEDS ORDERED: PROMETHAZINE HCL 25 MG/1 ML VIAL IVPUSH PRN (22:09)
[2018-10-23] MEDS ORDERED: CEFTRIAXONE 2 GM in DEXTROSE 5%-WATER 100 ML IVPB SCH (22:30)
[2018-10-23] MEDS ORDERED: DEXTROSE 5%-WATER 100 ML IVPB ONE (23:25)
[2018-10-24] MEDS ORDERED: PIPERACILLIN/TAZOB 3.375 GM 3.375 GM in DEXTROSE 5%-WATER - 50 ML IVPB SCH (02:00)
[2018-10-24] MEDS ORDERED: DEXTROSE 5%-WATER - 50 ML IVPB ONE ×4 (04:14→21:15)
[2018-10-24] MEDS ORDERED: PIPERACILLIN/TAZOBACTAM 3.375 GM VIAL IVPB ONE ×4 (04:14→21:15)
[2018-10-24] MEDS: PIPERACILLIN/TAZOB 3.375 GM 3.375 GM in DEXTROSE 5%-WATER - 50 ML IVPB SCH ×4 (04:16→21:50)
[2018-10-24] MEDS: oxyCODONE HCL 5 MG TABLET PO PRN ×3 (04:55→18:22)
--- NOTE | 2018-10-24 08:20 | OP ---
DATE OF OPERATION: 10/23/2018 PREOPERATIVE DIAGNOSIS: Calculus of the gallbladder with acute cholecystitis . POSTOPERATIVE DIAGNOSIS: Empyema of the gallbladder with extensive adhesions of stomach and duodenum to the gallbladder. OPERATIVE PROCEDURE: Laparoscopic cholecystectomy with extensive lysis of adhesions. SURGEON: Charley Torres MD CLIENT MANAGER [employer]: AHMET Eaton ANESTHESIA: General anesthesia. OPERATIVE DESCRIPTION: This 38-year-old woman was admitted with right upper quadrant abdominal pain, nausea and vomiting for 2 days. Patient had pain on and off in the right upper quadrant. Ultrasound suggested acute cholecystitis. Patient was brought in for laparoscopic cholecystectomy. Consent was obtained. Risks, benefits, and complications have been discussed with the patient. Patient was given general anesthesia. The abdomen was painted and draped. A 10-12-cm laparoscopic trocar was inserted through the umbilical access. Incision was made in the infraumbilical portion of the umbilicus after time-out was called. The incision was deepened through the skin and subcutaneous tissue and the linea alba. The peritoneum was incised, and the 10-12-cm laparoscopic trocar of the Nyasia type was introduced into the abdominal cavity. Two stay sutures of 2-0 Vicryl were obtained to hold the trocar into the abdominal wall. Two 5-mm trocars were inserted in the right upper quadrant of the abdomen, one along the anterior axillary line , another along the midclavicular line. Both were noted entering the abdominal cavity under direct vision with the camera in the umbilical port . Another 5-mm trocar was inserted in the midline of the subxiphoid area. This was introduced to the right of the falciform ligament and again visualized with the camera. This was later converted to a 10-mm port for insertion of a 10-mm dripper across the cystic duct. The gallbladder was very much inflamed, very edematous and thickened. The stomach and the duodenum were pulled towards the body of the gallbladder. This was carefully lysed using sharp and blunt dissection. The peritoneal reflection around the infundibulum of the gallbladder was incised and infundibulum was visualized. The gallbladder was then grasped with the grasper through the lateral 5-mm port which grasped the fundus of the gallbladder and retracted it , cephalad and laterally , thus exposing the body and infundibulum of the gallbladder. The infundibulum of the gallbladder was grasped with another grasper through the middle 5-mm port. With sharp and blunt dissection, attempt was made to identify the gallbladder at the cystic duct junction. This was deep within the gallbladder fossa. The peritoneal reflection on either side of the infundibulum of the gallbladder was then incised, and the gallbladder dissected out of the gallbladder bed with sharp and blunt dissection. Further down, attempt was made to identify the cystic duct and cystic artery. After deliberate dissection, cystic artery was identified going under the cystic duct. This was then divided between clips. The gallbladder was edematous throughout the length of the gallbladder. Prior to the procedure, the gallbladder was emptied by introducing a needle through the subxiphoid port and emptying the bile. The bile was very cloudy and murky suggesting infection and empyema. The gallbladder was very dense, densely adherent to the gallbladder fossa in the liver. After deliberate dissection, the cystic duct was isolated circumferentially. This was larger than a 5-mm diameter. Therefore, the subxiphoid port was converted to a 10-mm port, and 10-mm clipper was applied across the cystic duct. This was then divided. Prior to this, the gallbladder was dissected off the gallbladder bed all the way to the fundus of the gallbladder. Once the cystic duct was divided, the procedure was completed by dissecting the gallbladder off the gallbladder bed all the way to the fundus of the gallbladder. There was a thick peel of very edematous peritoneum and a lot of edematous fluid around the gallbladder. Hemostasis was satisfactory throughout the procedure. An EndoCatch was then introduced through the umbilical port. The gallbladder was placed in the EndoCatch and retrieved out of the abdominal cavity. It was a long thick gallbladder with 2 large calculi. The gallbladder fossa was then thoroughly irrigated with normal saline. Because of extensive edema and extensive length of the procedure, drain was left in the gallbladder fossa. This was introduced through the umbilical port and brought out through the lateral 5-mm port. The drain was left in the gallbladder fossa. Gallbladder fossa was then thoroughly irrigated with normal saline. All fluid return was clear. There was no bleeding, no bile leak. The instruments were then withdrawn under direct vision. The drain was anchored with 2-0 Prolene sutures to the abdominal wall. The linea alba in midline in the umbilical port as well as the subxiphoid port was approximated with interrupted [id number] 2-0 Vicryl sutures. Skin was approximated with buried interrupted 4-0 Biosyn sutures. Marcaine 0.5% was injected into the wound. Dermabond was applied to close the skin edges. Patient tolerated the procedure well, was extubated, and sent to the recovery room in satisfactory and stable condition. Christos ECHEVERRIA/[id number] MTDD
[2018-10-24 08:34] LABS: BASO % 0.4 % (0-2.0); EOS % 0.2 % (0-4.5); HEMATOCRIT 38.4 % (32.4-45.2); HEMOGLOBIN 12.7 GM/dL (10.7-15.3); LYMPH % 17.3 % (8-40); MCH 28.9 pg (25.7-33.7); MCHC 33.2 g/dl (32.0-36.0); MEAN PLT VOLUME 10.1 fl (7.5-11.1); MONO % 10.2 % (3.8-10.2); NEUT % 71.9 % (42.8-82.8); PLATELET COUNT 198 K/MM3 (134-434); RBC 4.42 M/mm3 (3.60-5.2); RDW 13.6 % (11.6-15.6); WHITE BLOOD COUNT 10.5 K/mm3 (4.0-10.0)
[2018-10-24 09:15] LABS: ALBUMIN 3.2 g/dl (3.4-5.0); ALK PHOS 65 U/L (45-117); ANION GAP 9 MMOL/L (8-16); BILIRUBIN,TOTAL 0.5 mg/dL (0.2-1); BLOOD UREA NITROGEN 5 mg/dL (7-18); CHLORIDE 105 mmol/L (98-107); CO2 23 mmol/L (21-32); CREATININE 0.6 mg/dL (0.55-1.3); GLUCOSE,RANDOM 100 mg/dL (74-106); MAGNESIUM 1.9 mg/dL (1.8-2.4); PHOSPHOROUS 2.8 mg/dL (2.5-4.9); POTASSIUM 3.9 mmol/L (3.5-5.1); SGOT/AST 38 U/L (15-37); SGPT/ALT 44 U/L (13-61); SODIUM 137 mmol/L (136-145); TOT PROT 6.8 g/dl (6.4-8.2)
--- NOTE | 2018-10-24 13:21 | PN ---
Physical Exam: SUBJECTIVE: Patient seen and examined at bedside. no acute events overnight. POD1 Lap Rita w/ extensive lysis of adhesions. empyema and adhesions of stomach and duodenum to the gallbladder found intraop. c/o some abd pain but much improved. denies fever, chills, cp, sob, diarrhea, urinary sxs. tolerating PO OBJECTIVE: Vital Signs Period Temp Pulse Resp BP Sys/[place] Pulse Ox Last 24 Hr 98.1 F-100 F 69-89 14-22 105-128/53-81 99-100 GENERAL: AOX3 NAD HEAD: NCAT EYES: Pupils equal, round and reactive to light, extraocular movements intact, sclera anicteric, conjunctiva clear. EARS, NOSE, THROAT: Ears normal, nares patent, oropharynx clear without exudates. Moist mucous membranes. NECK: Normal range of motion, supple without lymphadenopathy, JVD, or masses. LUNGS: CTAB HEART: RRR, normal S1 and S2 without murmur, rub or gallop. ABDOMEN: Soft, RUQ and epigastric tenderness, +MERRITT drain, surgical site c/d/i. not distended, normoactive bowel sounds MUSCULOSKELETAL: Normal range of motion at all joints. No bony deformities or tenderness. No CVA tenderness. UPPER EXTREMITIES: 2+ radial pulses, warm, well-perfused. No cyanosis. No clubbing. No peripheral edema. LOWER EXTREMITIES: 2+ dorsal pedal pulses, warm, well-perfused. No calf tenderness. No peripheral edema. NEUROLOGICAL: Normal speech. strength sensation grossly intact PSYCHIATRIC: Cooperative. Good eye contact. Appropriate mood and affect. SKIN: Warm, dry, normal turgor, no rashes or lesions noted, normal capillary refill. Laboratory Results - last 24 hr 10/24/18 10/24/18 07:45 07:45 WBC 10.5 H RBC 4.42 Hgb 12.7 Hct 38.4 MCV 87.0 MCH 28.9 MCHC 33.2 RDW 13.6 Plt Count 198 MPV 10.1 Absolute Neuts (auto) 7.5 Neutrophils % 71.9 Lymphocytes % 17.3 D Monocytes % 10.2 Eosinophils % 0.2 Basophils % 0.4 Nucleated RBC % 0 Sodium 137 Potassium 3.9 Chloride 105 Carbon Dioxide 23 Anion Gap 9 BUN 5 L Creatinine 0.6 Creat Clearance w eGFR 111.88 Random Glucose 100 Calcium 8.0 L Phosphorus 2.8 Magnesium 1.9 Total Bilirubin 0.5 AST 38 H ALT 44 Alkaline Phosphatase 65 Total Protein 6.8 Albumin 3.2 L Active Medications Generic Name Dose Route Start Last Admin Trade Name Freq PRN Reason Stop Dose Admin Acetaminophen 1,000 mg 10/23/18 21:52 10/23/18 21:40 Ofirmev Injection - IVPB 1,000 mg Q6H PRN Administration PAIN LEVEL 6-10 Piperacillin Sod/Tazobactam 50 mls @ 100 mls/hr 10/24/18 15:00 Sod 3.375 gm/ Dextrose IVPB Q6H-IV LAUREEN Protocol Sodium Chloride 1,000 mls @ 125 mls/hr 10/23/18 21:52 10/23/18 22:52 Normal Saline - IV Not Given ASDIR LAUREEN Ondansetron HCl 4 mg 10/23/18 21:52 Zofran Injection IVPUSH Q6H PRN NAUSEA Oxycodone HCl 5 mg 10/23/18 21:35 Roxicodone - PO Q6H PRN PAIN LEVEL 1-5 Oxycodone HCl 10 mg 10/23/18 21:35 10/24/18 04:55 Roxicodone - PO 10 mg Q6H PRN Administration PAIN LEVEL 6-10 Oxycodone HCl 10 mg 10/23/18 22:09 10/24/18 12:38 Roxicodone - PO 10/24/18 22:08 10 mg Q4H PRN Administration PAIN LEVEL 6-10 Promethazine HCl 12.5 mg 10/23/18 22:09 Phenergan Injection - IVPUSH 10/25/18 02:00 Q6H PRN NAUSEA-FOR RESCUE AFTER 15 MIN [id number] US/ABDOMEN US -LIMITED Rule out cholecystitis Right upper abdomen ultrasound. The liver measures 16.8 cm in sagittal length with a slightly dense and coarse echotexture. Gallbladder is adequately distended without intraluminal stones the largest in the region of the gallbladder neck measuring 2.2 cm. There is mild thickening of the gallbladder wall measuring up to 5 mm without evidence of pericholecystic free fluid. No intra or extrahepatic bile duct dilatation is seen. The common bile duct measures 5 mm in diameter. The right kidney measures 10.9 cm sagittal length and appears unremarkable. Visualized portion of the pancreas appears unremarkable Visualized portion of the proximal abdominal aorta and inferior vena cava appear unremarkable. Normal flow in the main portal vein. IMPRESSION: Intraluminal stones with the largest in the region of the gallbladder neck measuring 2.2 cm with gallbladder wall thickening and without evidence of pericholecystic free fluid. Cannot rule out cholecystitis. Correlate clinically for further evaluation. ASSESSMENT/PLAN: 38 y.o. F p/w 2 month history of intermittent RUQ/Epigastric pain that has acutely worsened in the last 4 days and is associated w/ n/v. #Acute cholecystitis with obstruction and empyema of the gallbladder - POD1 Lap Rita w/ extensive lysis of adhesions. empyema and adhesions of stomach and duodenum to the gallbladder found intraop Abdominal US - 2.3cm stone in GB neck with GB wall thickening Surgery consult (Dr. Torres) IVF pain ctl - Oxycodone, tylenol IV Zofran 4mg Q6H PRN f/u cx c/w Zosyn Incentive spirometer monitor MERRITT drain EKG x 2 showed normal QTc however chronic TWI in V1-V3, qtc 424 Community Director Pt. on Diet and nutrition tolerating PO #FEN PO hydration monitor electrolytes and replete as needed Regular diet #DVT Ppx. SCDs Dispo m/s Visit type - Emergency Visit Emergency Visit: Yes ED Registration Date: 10/23/18 Care time: The patient presented to the Emergency Department on the above date and was hospitalized for further evaluation of their emergent condition. - New Patient This patient is new to me today: Yes Date on this admission: 10/24/18 - Critical Care Critical Care patient: No
--- NOTE | 2018-10-24 15:03 | CON.ID ---
Consult - History of Present Illness History of Present Illness: 38 y.o. 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 She states that she has had stomach discomfort intermittently and an outpt EGD had been planned. Several days ago the pain became constant and severe and pt reports episodes of vomiting. In the ER she was afebrile, without significant leukoyctosis but imaging revealed obstructive GB stone and finding consistent with cholecytitis. Pt is now s/p cholecystectomy. In the OR found to have empyema, RUQ drain in place, and pt is on antibiotics. Currently pt is alert, afebrile, (Tmax 100F), and abd pain is controlled. Denies nausea or episodes of vomiting. No other specific complaints. - History Source History Provided By: Patient Limitations to Obtaining History: No Limitations - Past Medical History ...LMP: 04/29/14 ...LMP Comment: Last week ...: No - Alcohol/Substance Use Hx Alcohol Use: No - Smoking History Smoking history: Never smoked Have you smoked in the past 12 months: No Home Medications - Allergies Allergies/Adverse Reactions: Allergies Allergy/AdvReac Type Severity Reaction Status Date / Time No Known Allergies Allergy Verified 10/22/18 21:06 - Home Medications Home Medications: Ambulatory Orders Acetaminophen [Tylenol .Regular Strength -] 650 mg PO Q6H PRN #0 tablet Vitamins (Sjr) - 1 tab PO DAILY #0 tablet 08/23/13 Review of Systems - Review of Systems Constitutional: reports: No Symptoms Eyes: reports: No Symptoms HENT: reports: No Symptoms Neck: reports: No Symptoms Cardiovascular: reports: No Symptoms Respiratory: reports: No Symptoms Gastrointestinal: reports: Abdominal Pain (mild RUQ) Genitourinary: reports: No Symptoms Integumentary: reports: No Symptoms Neurological: reports: No Symptoms Endocrine: reports: No Symptoms Hematology/Lymphatic: reports: No Symptoms Psychiatric: reports: No Symptoms Physical Exam Vital Signs: Vital Signs Temperature 98.7 F 10/24/18 10:00 Pulse Rate 76 10/24/18 10:00 Respiratory Rate 20 10/24/18 10:00 Blood Pressure 112/67 10/24/18 10:00 O2 Sat by Pulse Oximetry (%) 99 10/24/18 09:00 Constitutional: Yes: No Distress, Calm Eyes: Yes: Conjunctiva Clear HENT: Yes: Atraumatic Neck: Yes: Supple Cardiovascular: Yes: Regular Rate and Rhythm Respiratory: Yes: CTA Bilaterally Gastrointestinal: Yes: Normal Bowel Sounds, Soft, Tenderness (RUQ with palpation ), Other (RUQ drain with sanguinous fluid) Musculoskeletal: Yes: WNL Extremities: Yes: WNL Edema: No Integumentary: Yes: WNL Neurological: Yes: Alert, Oriented Labs: CBC, BMP 10/24/18 07:45 10/24/18 07:45 Laboratory Tests 10/22/18 10/22/18 10/22/18 21:17 21:17 21:17 WBC 10.7 H RBC 4.64 Hgb 13.4 Hct 40.4 D MCV 86.9 MCH 28.9 MCHC 33.3 RDW 13.5 Plt Count 238 D MPV 9.9 Absolute Neuts (auto) 8.1 H Neutrophils % 75.6 Lymphocytes % 17.4 D Monocytes % 6.1 Eosinophils % 0.4 D Basophils % 0.5 Nucleated RBC % 0 PT with INR INR PTT (Actin FS) Sodium 137 Potassium 3.6 Chloride 105 Carbon Dioxide 22 Anion Gap 10 BUN 16 Creatinine 0.6 Creat Clearance w eGFR 111.88 Random Glucose 138 H Calcium 9.3 Phosphorus Magnesium Total Bilirubin 0.3 AST 12 L ALT 23 Alkaline Phosphatase 71 Creatine Kinase 72 Cancelled Troponin I < 0.02 Cancelled Total Protein 8.4 H Albumin 4.1 Lipase 101 Urine HCG, Qual Blood Type Antibody Screen 10/22/18 10/22/18 10/23/18 22:30 22:57 01:30 WBC RBC Hgb Hct MCV MCH MCHC RDW Plt Count MPV Absolute Neuts (auto) Neutrophils % Lymphocytes % Monocytes % Eosinophils % Basophils % Nucleated RBC % PT with INR 13.80 H INR 1.17 H PTT (Actin FS) Sodium Potassium Chloride Carbon Dioxide Anion Gap BUN Creatinine Creat Clearance w eGFR Random Glucose Calcium Phosphorus Magnesium Total Bilirubin AST ALT Alkaline Phosphatase Creatine Kinase Troponin I Total Protein Albumin Lipase Cancelled Urine HCG, Qual Negative Blood Type Antibody Screen 10/23/18 10/23/18 10/23/18 01:30 03:00 07:00 WBC 8.8 RBC 4.53 Hgb 13.1 Hct 39.5 MCV 87.1 MCH 28.9 MCHC 33.2 RDW 13.5 Plt Count 209 MPV 10.0 Absolute Neuts (auto) 5.9 Neutrophils % 66.2 Lymphocytes % 23.1 D Monocytes % 9.8 Eosinophils % 0.6 Basophils % 0.3 Nucleated RBC % 0 PT with INR INR PTT (Actin FS) Sodium Potassium Chloride Carbon Dioxide Anion Gap BUN Creatinine Creat Clearance w eGFR Random Glucose Calcium Phosphorus 2.6 Magnesium 2.1 Total Bilirubin AST ALT Alkaline Phosphatase Creatine Kinase Troponin I Total Protein Albumin Lipase Urine HCG, Qual Blood Type O POSITIVE Antibody Screen Negative 10/23/18 10/23/18 10/24/18 07:00 07:00 07:45 WBC 10.5 H RBC 4.42 Hgb 12.7 Hct 38.4 MCV 87.0 MCH 28.9 MCHC 33.2 RDW 13.6 Plt Count 198 MPV 10.1 Absolute Neuts (auto) 7.5 Neutrophils % 71.9 Lymphocytes % 17.3 D Monocytes % 10.2 Eosinophils % 0.2 Basophils % 0.4 Nucleated RBC % 0 PT with INR INR PTT (Actin FS) 32.2 Sodium 138 Potassium 3.6 Chloride 107 Carbon Dioxide 25 Anion Gap 7 L BUN 11 Creatinine 0.6 Creat Clearance w eGFR 111.88 Random Glucose 106 Calcium 8.7 Phosphorus 3.2 Magnesium 2.4 Total Bilirubin 0.5 AST 9 L ALT 20 Alkaline Phosphatase 62 Creatine Kinase Troponin I Total Protein 7.3 Albumin 3.6 Lipase Urine HCG, Qual Blood Type Antibody Screen 10/24/18 07:45 WBC RBC Hgb Hct MCV MCH MCHC RDW Plt Count MPV Absolute Neuts (auto) Neutrophils % Lymphocytes % Monocytes % Eosinophils % Basophils % Nucleated RBC % PT with INR INR PTT (Actin FS) Sodium 137 Potassium 3.9 Chloride 105 Carbon Dioxide 23 Anion Gap 9 BUN 5 L Creatinine 0.6 Creat Clearance w eGFR 111.88 Random Glucose 100 Calcium 8.0 L Phosphorus 2.8 Magnesium 1.9 Total Bilirubin 0.5 AST 38 H ALT 44 Alkaline Phosphatase 65 Creatine Kinase Troponin I Total Protein 6.8 Albumin 3.2 L Lipase Urine HCG, Qual Blood Type Antibody Screen Bile Culture pending Imaging - Results Chest X-ray: Report Reviewed Cat Scan: Report Reviewed Ultrasound: Report Reviewed Problem List - Problems (1) Calculus of gallbladder with acute cholecystitis with obstruction Code(s): K80.01 - CALCULUS OF GALLBLADDER W ACUTE CHOLECYSTITIS W OBSTRUCTION Assessment/Plan Acute Cholecytitis with obstruction/GB empyema s/p cholecystectomy -- continue Zosyn -- follow up culture results -- monitor temps, pt currently stable Will follow up Thank you
[2018-10-24 15:18] VITALS: BMI 26.2
--- NOTE | 2018-10-24 17:20 | PN ---
Teaching Attending Note Name of Resident: Satish Lopez ATTENDING PHYSICIAN STATEMENT I saw and evaluated the patient. I reviewed the resident's note and discussed the case with the resident. I agree with the resident's findings and plan as documented. SUBJECTIVE: Ongoing abdominal discomfort, improved nausea, no further vomiting. No fever/chills. No BM/Flatus yet. OBJECTIVE: Afebrile, Hemodynamically Stable. Last Vital Signs Temp Pulse Resp BP Pulse Ox 99.1 F 96 H 20 109/61 99 10/24/18 14:22 10/24/18 14:22 10/24/18 14:22 10/24/18 14:22 10/24/18 09:00 HEENT - Atraumatic, Normocephalic. Heart - S1, S2, RRR Lungs - clear to auscultation Abdomen - RUQ tenderness, Soft. MERRITT drain in situ. Bowel Sounds normal. Extremities - No edema, no calf tenderness. Laboratory Results - last 24 hr 10/24/18 10/24/18 07:45 07:45 WBC 10.5 H RBC 4.42 Hgb 12.7 Hct 38.4 MCV 87.0 MCH 28.9 MCHC 33.2 RDW 13.6 Plt Count 198 MPV 10.1 Absolute Neuts (auto) 7.5 Neutrophils % 71.9 Lymphocytes % 17.3 D Monocytes % 10.2 Eosinophils % 0.2 Basophils % 0.4 Nucleated RBC % 0 Sodium 137 Potassium 3.9 Chloride 105 Carbon Dioxide 23 Anion Gap 9 BUN 5 L Creatinine 0.6 Creat Clearance w eGFR 111.88 Random Glucose 100 Calcium 8.0 L Phosphorus 2.8 Magnesium 1.9 Total Bilirubin 0.5 AST 38 H ALT 44 Alkaline Phosphatase 65 Total Protein 6.8 Albumin 3.2 L Current Medications Generic Name Dose Route Start Last Admin Trade Name Freq PRN Reason Stop Dose Admin Piperacillin Sod/Tazobactam 50 mls @ 100 mls/hr 10/24/18 15:30 10/24/18 15:43 Sod 3.375 gm/ Dextrose IVPB 100 mls/hr Q6H-IV LAUREEN Administration Protocol Ondansetron HCl 4 mg 10/23/18 21:52 Zofran Injection IVPUSH Q6H PRN NAUSEA Oxycodone HCl 5 mg 10/23/18 21:35 Roxicodone - PO Q6H PRN PAIN LEVEL 1-5 Oxycodone HCl 10 mg 10/23/18 21:35 10/24/18 04:55 Roxicodone - PO 10 mg Q6H PRN Administration PAIN LEVEL 6-10 Oxycodone HCl 10 mg 10/23/18 22:09 10/24/18 12:38 Roxicodone - PO 10/24/18 22:08 10 mg Q4H PRN Administration PAIN LEVEL 6-10 ASSESSMENT/PLAN: 38 year old female with 2 month history of intermittent abdominal discomfort, presents with 3 day history of progressively worsening RUQ/Epigastric pain with associated nausea and vomiting. She was recently seen by Gastroenterology and prescribed Nexium and Reglan, with little effect on symptoms. 1. Acute Cholecystitis s/p Cholecystectomy with MERRITT drain in situ Abdominal US - 2.3cm stone in GB neck with GB wall thickening Operative report suggests empyema of GB with extensive adhesions to stomach and duodenum. Continue IV Abx - Zosyn Dilaudid/Zofran prn. Afebrile, Hemodynamically Stable. Advance diet as per Surgery. DVT Px - Will start Heparin SQ
[2018-10-24] MEDS ORDERED: ACETAMINOPHEN 500 MG TABLET (FP) PO PRN (17:42)
--- NOTE | 2018-10-24 18:43 | PN ---
Progress Note, Physician - Current Medication List Current Medications: Active Medications Acetaminophen (Tylenol -) 1,000 mg PO Q6H PRN PRN Reason: FEVER Last Admin: 10/24/18 17:53 Dose: 1,000 mg Heparin Sodium (Porcine) (Heparin -) 5,000 unit SQ TID LAUREEN Piperacillin Sod/Tazobactam (Sod 3.375 gm/ Dextrose) 50 mls @ 100 mls/hr IVPB Q6H-IV LAUREEN; Protocol Last Admin: 10/24/18 15:43 Dose: 100 mls/hr Ondansetron HCl (Zofran Injection) 4 mg IVPUSH Q6H PRN PRN Reason: NAUSEA Oxycodone HCl (Roxicodone -) 5 mg PO Q6H PRN PRN Reason: PAIN LEVEL 1-5 Oxycodone HCl (Roxicodone -) 10 mg PO Q6H PRN PRN Reason: PAIN LEVEL 6-10 Last Admin: 10/24/18 04:55 Dose: 10 mg Oxycodone HCl (Roxicodone -) 10 mg PO Q4H PRN PRN Reason: PAIN LEVEL 6-10 Stop: 10/24/18 22:08 Last Admin: 10/24/18 18:22 Dose: 10 mg - Objective Vital Signs: Vital Signs Temperature 100.8 F H 10/24/18 17:42 Pulse Rate 92 H 10/24/18 17:40 Respiratory Rate 19 10/24/18 17:40 Blood Pressure 116/67 10/24/18 17:40 O2 Sat by Pulse Oximetry (%) 99 10/24/18 09:00 Labs: CBC, BMP 10/24/18 07:45 10/24/18 07:45 INR, PTT INR 1.17 (0.83-1.09) H 10/23/18 01:30 Problem List - Problems (1) Calculus of gallbladder with acute cholecystitis with obstruction Code(s): K80.01 - CALCULUS OF GALLBLADDER W ACUTE CHOLECYSTITIS W OBSTRUCTION (2) Nausea and vomiting Code(s): R11.2 - NAUSEA WITH VOMITING, UNSPECIFIED (3) Nausea and vomiting Code(s): R11.2 - NAUSEA WITH VOMITING, UNSPECIFIED (4) Abdominal pain, acute, right upper quadrant Code(s): R10.11 - RIGHT UPPER QUADRANT PAIN Assessment/Plan S/P laparoscopic cholecystectomy for acute cholecystitis with empyema. Patient is ambulating c/o abdomianl pain. Tolerating feeding. Spencer drain is clear serosanguinous patient is informed of operative findings. remp : elevated . WBC is normal. Continue antibiotics, Fluid cultures are pending.
[2018-10-24] MEDS: HEPARIN NA (PORCINE) 5,000 UNITS/ML 1ML VIAL SQ SCH (22:09)
[2018-10-25] MEDS ORDERED: DEXTROSE 5%-WATER - 50 ML IVPB ONE ×4 (01:45→21:45)
[2018-10-25] MEDS ORDERED: PIPERACILLIN/TAZOBACTAM 3.375 GM VIAL IVPB ONE ×4 (01:45→21:44)
[2018-10-25] MEDS: PIPERACILLIN/TAZOB 3.375 GM 3.375 GM in DEXTROSE 5%-WATER - 50 ML IVPB SCH ×4 (02:02→23:29)
[2018-10-25] MEDS: oxyCODONE HCL 5 MG TABLET PO PRN ×4 (02:25→21:48)
[2018-10-25] MEDS: HEPARIN NA (PORCINE) 5,000 UNITS/ML 1ML VIAL SQ SCH ×3 (06:47→21:49)
--- NOTE | 2018-10-25 07:35 | PN ---
Progress Note, Physician Chief Complaint: s/p lap bo under general anesthesia History of Present Illness: post op day one - Current Medication List Current Medications: Active Medications Acetaminophen (Tylenol -) 1,000 mg PO Q6H PRN PRN Reason: FEVER Last Admin: 10/24/18 17:53 Dose: 1,000 mg Heparin Sodium (Porcine) (Heparin -) 5,000 unit SQ TID LAUREEN Last Admin: 10/25/18 06:47 Dose: 5,000 unit Piperacillin Sod/Tazobactam (Sod 3.375 gm/ Dextrose) 50 mls @ 100 mls/hr IVPB Q6H-IV LAUREEN; Protocol Last Admin: 10/25/18 02:02 Dose: 100 mls/hr Ondansetron HCl (Zofran Injection) 4 mg IVPUSH Q6H PRN PRN Reason: NAUSEA Oxycodone HCl (Roxicodone -) 5 mg PO Q6H PRN PRN Reason: PAIN LEVEL 1-5 Oxycodone HCl (Roxicodone -) 10 mg PO Q6H PRN PRN Reason: PAIN LEVEL 6-10 Last Admin: 10/25/18 02:25 Dose: 10 mg - Objective Vital Signs: Vital Signs Temperature 99.5 F 10/25/18 05:00 Pulse Rate 92 H 10/25/18 05:00 Respiratory Rate 20 10/25/18 05:00 Blood Pressure 99/59 L 10/25/18 05:00 O2 Sat by Pulse Oximetry (%) 99 10/24/18 21:00 Constitutional: Yes: Well Nourished Cardiovascular: Yes: WNL Respiratory: Yes: WNL Gastrointestinal: Yes: WNL Labs: CBC, BMP 10/24/18 07:45 10/24/18 07:45 INR, PTT INR 1.17 (0.83-1.09) H 10/23/18 01:30 Assessment/Plan no adverse effect of anesthetic. dept of anesthesiology will sign off care at this time
[2018-10-25 08:50] LABS: BASO % 0.3 % (0-2.0); EOS % 0.6 % (0-4.5); HEMATOCRIT 36.1 % (32.4-45.2); HEMOGLOBIN 12.2 GM/dL (10.7-15.3); MCH 29.8 pg (25.7-33.7); MCHC 33.9 g/dl (32.0-36.0); MEAN CELL VOLUME 87.9 fl (80-96); MEAN PLT VOLUME 10.1 fl (7.5-11.1); MONO % 9.1 % (3.8-10.2); PLATELET COUNT 186 K/MM3 (134-434); RBC 4.11 M/mm3 (3.60-5.2); RDW 13.8 % (11.6-15.6); WHITE BLOOD COUNT 10.5 K/mm3 (4.0-10.0)
[2018-10-25 09:21] LABS: ALK PHOS 63 U/L (45-117); ANION GAP 8 MMOL/L (8-16); BILIRUBIN,TOTAL 0.4 mg/dL (0.2-1); BLOOD UREA NITROGEN 7 mg/dL (7-18); CALCIUM 7.8 mg/dL (8.5-10.1); CHLORIDE 107 mmol/L (98-107); CO2 24 mmol/L (21-32); CREATININE 0.6 mg/dL (0.55-1.3); GLUCOSE,RANDOM 98 mg/dL (74-106); MAGNESIUM 2.1 mg/dL (1.8-2.4); POTASSIUM 3.3 mmol/L (3.5-5.1); SGOT/AST 28 U/L (15-37); SGPT/ALT 40 U/L (13-61); SODIUM 139 mmol/L (136-145); TOT PROT 6.6 g/dl (6.4-8.2)
--- NOTE | 2018-10-25 14:59 | PN ---
Progress Note, Physician History of Present Illness: Pt reports feeling better today. Passing gas but no BM as of yet, pain controlled. Temp of 100.8F yesterday, currently afebrile. Had lunch today, no current n/v. No other specific complaints. - Current Medication List Current Medications: Active Medications Acetaminophen (Tylenol -) 1,000 mg PO Q6H PRN PRN Reason: FEVER Last Admin: 10/24/18 17:53 Dose: 1,000 mg Heparin Sodium (Porcine) (Heparin -) 5,000 unit SQ TID LAUREEN Last Admin: 10/25/18 14:12 Dose: 5,000 unit Piperacillin Sod/Tazobactam (Sod 3.375 gm/ Dextrose) 50 mls @ 100 mls/hr IVPB Q6H-IV LAUREEN; Protocol Last Admin: 10/25/18 14:12 Dose: 100 mls/hr Ondansetron HCl (Zofran Injection) 4 mg IVPUSH Q6H PRN PRN Reason: NAUSEA Last Admin: 10/25/18 08:12 Dose: 4 mg Oxycodone HCl (Roxicodone -) 5 mg PO Q6H PRN PRN Reason: PAIN LEVEL 1-5 Last Admin: 10/25/18 14:15 Dose: 5 mg Oxycodone HCl (Roxicodone -) 10 mg PO Q6H PRN PRN Reason: PAIN LEVEL 6-10 Last Admin: 10/25/18 08:15 Dose: 10 mg - Objective Vital Signs: Vital Signs Temperature 97.9 F 10/25/18 14:30 Pulse Rate 90 10/25/18 14:30 Respiratory Rate 20 10/25/18 14:30 Blood Pressure 101/59 L 10/25/18 14:30 O2 Sat by Pulse Oximetry (%) 98 10/25/18 09:00 Constitutional: Yes: No Distress, Calm Cardiovascular: Yes: Regular Rate and Rhythm Respiratory: Yes: Regular Gastrointestinal: Yes: Normal Bowel Sounds, Soft, Tenderness (RUQ), Other (RUQ drain with serosanguinous fluid) Edema: No Integumentary: Yes: WNL Neurological: Yes: Alert, Oriented Labs: CBC, BMP 10/25/18 08:10 10/25/18 08:10 INR, PTT INR 1.17 (0.83-1.09) H 10/23/18 01:30 Microbiology 10/23/18 21:30 Bile Gram Stain - Final 10/23/18 21:30 Bile Body Fluid Culture - Preliminary NO AEROBIC GROWTH, 24 HRS Problem List - Problems (1) Calculus of gallbladder with acute cholecystitis with obstruction Code(s): K80.01 - CALCULUS OF GALLBLADDER W ACUTE CHOLECYSTITIS W OBSTRUCTION Assessment/Plan Acute Cholecytitis with obstruction s/p cholecystectomy/ drainage GB empyema Fever -- continue Zosyn , monitor temps -- diet advanced, appears to be tolerating so far -- culture results noted -- continue monitor
--- NOTE | 2018-10-25 16:04 | PN ---
Progress Note (short form) - Note Progress Note: SUBJECTIVE: Ongoing abdominal discomfort, mostly RUQ. Improved nausea, no further vomiting. No fever/chills. Passing flatus, no BMs. Tolerating oral intake. OBJECTIVE: Fever - T 100.8, Hemodynamically Stable. Last Vital Signs Temp Pulse Resp BP Pulse Ox 97.9 F 90 20 101/59 L 98 10/25/18 14:30 10/25/18 14:30 10/25/18 14:30 10/25/18 14:30 10/25/18 09:00 Heart - S1, S2, RRR Lungs - clear to auscultation Abdomen - RUQ tenderness, Soft. MERRITT drain in situ draining sero-sanguinous fluid (drained yesterday by Surgery). Bowel Sounds normal. Extremities - No edema, no calf tenderness. Laboratory Results - last 24 hr 10/25/18 10/25/18 08:10 08:10 WBC 10.5 H RBC 4.11 Hgb 12.2 Hct 36.1 MCV 87.9 MCH 29.8 MCHC 33.9 RDW 13.8 Plt Count 186 MPV 10.1 Absolute Neuts (auto) 7.9 Neutrophils % 75.0 Lymphocytes % 15.0 Monocytes % 9.1 Eosinophils % 0.6 D Basophils % 0.3 Nucleated RBC % 0 Sodium 139 Potassium 3.3 L Chloride 107 Carbon Dioxide 24 Anion Gap 8 BUN 7 Creatinine 0.6 Creat Clearance w eGFR 111.88 Random Glucose 98 Calcium 7.8 L Phosphorus 2.0 L Magnesium 2.1 Total Bilirubin 0.4 AST 28 ALT 40 Alkaline Phosphatase 63 Total Protein 6.6 Albumin 3.0 L Current Medications Generic Name Dose Route Start Last Admin Trade Name Thea PRN Reason Stop Dose Admin Acetaminophen 1,000 mg 10/24/18 17:42 10/24/18 17:53 Tylenol - PO 1,000 mg Q6H PRN Administration FEVER Heparin Sodium (Porcine) 5,000 unit 10/24/18 22:00 10/25/18 14:12 Heparin - SQ 5,000 unit TID LAUREEN Administration Piperacillin Sod/Tazobactam 50 mls @ 100 mls/hr 10/24/18 15:30 10/25/18 14:12 Sod 3.375 gm/ Dextrose IVPB 100 mls/hr Q6H-IV LAUREEN Administration Protocol Ondansetron HCl 4 mg 10/23/18 21:52 10/25/18 08:12 Zofran Injection IVPUSH 4 mg Q6H PRN Administration NAUSEA Oxycodone HCl 5 mg 10/23/18 21:35 10/25/18 14:15 Roxicodone - PO 5 mg Q6H PRN Administration PAIN LEVEL 1-5 Oxycodone HCl 10 mg 10/23/18 21:35 10/25/18 08:15 Roxicodone - PO 10 mg Q6H PRN Administration PAIN LEVEL 6-10 ASSESSMENT/PLAN: 38 year old female with 2 month history of intermittent abdominal discomfort, presents with 3 day history of progressively worsening RUQ/Epigastric pain with associated nausea and vomiting, found to have acute cholecystitis. She was recently seen by Gastroenterology and prescribed Nexium and Reglan, with little effect on symptoms. 1. Acute Cholecystitis s/p Cholecystectomy with MERRITT drain in situ Abdominal US - 2.3cm stone in GB neck with GB wall thickening Operative report suggests empyema of GB with extensive adhesions to stomach and duodenum. Bile Cx neg so far Blood Cx pending. Still febrile - T 100.8 Continue IV Abx - Zosyn Dilaudid/Zofran prn. Afebrile, Hemodynamically Stable. Tolerating Advanced diet. 2. Electrolyte Abnormalities - Hypokalemia/Hypophosphatemia - will replete. DVT Px - Heparin SQ Visit type - Emergency Visit Emergency Visit: Yes ED Registration Date: 10/23/18 Care time: The patient presented to the Emergency Department on the above date and was hospitalized for further evaluation of their emergent condition. - New Patient This patient is new to me today: No - Critical Care Critical Care patient: No - Discharge Referral Referred to [facility] No
[2018-10-25] MEDS ORDERED: POTASSIUM PHOSPHATE 30 MM in SODIUM CHLORIDE 500 ML IVPB ONE (16:30)
[2018-10-26] MEDS ORDERED: PIPERACILLIN/TAZOBACTAM 3.375 GM VIAL IVPB ONE ×3 (01:32→16:31)
[2018-10-26] MEDS ORDERED: DEXTROSE 5%-WATER - 50 ML IVPB ONE ×3 (01:32→16:31)
[2018-10-26] MEDS: PIPERACILLIN/TAZOB 3.375 GM 3.375 GM in DEXTROSE 5%-WATER - 50 ML IVPB SCH ×3 (04:15→16:33)
[2018-10-26] MEDS: HEPARIN NA (PORCINE) 5,000 UNITS/ML 1ML VIAL SQ SCH ×2 (05:36→14:37)
[2018-10-26 06:59] LABS: BASO % 0.4 % (0-2.0); EOS % 3.1 % (0-4.5); HEMATOCRIT 34.9 % (32.4-45.2); HEMOGLOBIN 11.6 GM/dL (10.7-15.3); LYMPH % 20.8 % (8-40); MCH 28.9 pg (25.7-33.7); MCHC 33.3 g/dl (32.0-36.0); MEAN CELL VOLUME 86.8 fl (80-96); MONO % 9.1 % (3.8-10.2); NEUT % 66.6 % (42.8-82.8); PLATELET COUNT 197 K/MM3 (134-434); RBC 4.02 M/mm3 (3.60-5.2); RDW 13.7 % (11.6-15.6); WHITE BLOOD COUNT 7.7 K/mm3 (4.0-10.0)
[2018-10-26 07:25] LABS: ALBUMIN 2.9 g/dl (3.4-5.0); ALK PHOS 59 U/L (45-117); ANION GAP 9 MMOL/L (8-16); BILIRUBIN,TOTAL 0.4 mg/dL (0.2-1); BLOOD UREA NITROGEN 8 mg/dL (7-18); CALCIUM 7.9 mg/dL (8.5-10.1); CHLORIDE 106 mmol/L (98-107); CO2 25 mmol/L (21-32); CREATININE 0.6 mg/dL (0.55-1.3); GLUCOSE,RANDOM 104 mg/dL (74-106); MAGNESIUM 2.1 mg/dL (1.8-2.4); PHOSPHOROUS 2.7 mg/dL (2.5-4.9); POTASSIUM 3.5 mmol/L (3.5-5.1); SGOT/AST 16 U/L (15-37); SGPT/ALT 33 U/L (13-61); SODIUM 140 mmol/L (136-145); TOT PROT 6.4 g/dl (6.4-8.2)
[2018-10-26] MEDS: oxyCODONE HCL 5 MG TABLET PO PRN (10:22)
--- NOTE | 2018-10-26 10:37 | DS ---
Physical Exam: SUBJECTIVE: Patient seen and examined at bedside. no acute events overnight, afebrile >24hr. POD3 Lap Rita w/ extensive lysis of adhesions. empyema and adhesions of stomach and duodenum to the gallbladder found intraop. c/o some abd pain but much improved. denies fever, chills, cp, sob, diarrhea, urinary sxs. tolerating PO +flatus/BMs OBJECTIVE: Vital Signs Period Temp Pulse Resp BP Sys/[place] Pulse Ox Last 24 Hr 97.9 F-98.7 F 90-101 20-20 99-105/51-67 98 PHYSICAL EXAM GENERAL: AOX3 NAD HEAD: NCAT EYES: Pupils equal, round and reactive to light, extraocular movements intact, sclera anicteric, conjunctiva clear. EARS, NOSE, THROAT: Ears normal, nares patent, oropharynx clear without exudates. Moist mucous membranes. NECK: Normal range of motion, supple without lymphadenopathy, JVD, or masses. LUNGS: CTAB HEART: RRR, normal S1 and S2 without murmur, rub or gallop. ABDOMEN: Soft, mild RUQ and epigastric tenderness, surgical site c/d/i. not distended, normoactive bowel sounds MUSCULOSKELETAL: Normal range of motion at all joints. No bony deformities or tenderness. No CVA tenderness. UPPER EXTREMITIES: 2+ radial pulses, warm, well-perfused. No cyanosis. No clubbing. No peripheral edema. LOWER EXTREMITIES: 2+ dorsal pedal pulses, warm, well-perfused. No calf tenderness. No peripheral edema. NEUROLOGICAL: Normal speech. strength sensation grossly intact PSYCHIATRIC: Cooperative. Good eye contact. Appropriate mood and affect. SKIN: Warm, dry, normal turgor, no rashes or lesions noted, normal capillary refill. LABS Laboratory Results - last 24 hr 10/26/18 10/26/18 06:15 06:15 WBC 7.7 RBC 4.02 Hgb 11.6 Hct 34.9 MCV 86.8 MCH 28.9 MCHC 33.3 RDW 13.7 Plt Count 197 MPV 10.0 Absolute Neuts (auto) 5.1 Neutrophils % 66.6 Lymphocytes % 20.8 D Monocytes % 9.1 Eosinophils % 3.1 D Basophils % 0.4 Nucleated RBC % 0 Sodium 140 Potassium 3.5 Chloride 106 Carbon Dioxide 25 Anion Gap 9 BUN 8 Creatinine 0.6 Creat Clearance w eGFR 111.88 Random Glucose 104 Calcium 7.9 L Phosphorus 2.7 Magnesium 2.1 Total Bilirubin 0.4 AST 16 ALT 33 Alkaline Phosphatase 59 Total Protein 6.4 Albumin 2.9 L 0301-2919 US/ABDOMEN US -LIMITED Rule out cholecystitis Right upper abdomen ultrasound. The liver measures 16.8 cm in sagittal length with a slightly dense and coarse echotexture. Gallbladder is adequately distended without intraluminal stones the largest in the region of the gallbladder neck measuring 2.2 cm. There is mild thickening of the gallbladder wall measuring up to 5 mm without evidence of pericholecystic free fluid. No intra or extrahepatic bile duct dilatation is seen. The common bile duct measures 5 mm in diameter. The right kidney measures 10.9 cm sagittal length and appears unremarkable. Visualized portion of the pancreas appears unremarkable Visualized portion of the proximal abdominal aorta and inferior vena cava appear unremarkable. Normal flow in the main portal vein. IMPRESSION: Intraluminal stones with the largest in the region of the gallbladder neck measuring 2.2 cm with gallbladder wall thickening and without evidence of pericholecystic free fluid. Cannot rule out cholecystitis. Correlate clinically for further evaluation. HOSPITAL COURSE: Date of Admission:10/23/18 Date of Discharge: 10/26/18 38 y.o. F p/w 2 month history of intermittent RUQ/Epigastric pain that has acutely worsened in the last 4 days and is associated w/ n/v. Admitted for Acute cholecystitis with obstruction and empyema of the gallbladder , now POD3 Lap Rita w/ extensive lysis of adhesions. EKG x 2 showed normal QTc however chronic TWI in V1-V3, qtc 424. Abdominal US - 2.3cm stone in GB neck with GB wall thickening. Surgery consulted (Dr. Torres). Operative report notes empyema of GB with extensive adhesions to stomach and duodenum. bcx are neg, Bile Cx neg. was noted w/ fever POD1 but now afebrile >24hr and is Hemodynamically Stable. MRERITT drain removed. tx w/ zosyn for 3 days and will be dcd w/ PO Augmentin 875 bid for 7 more days. tolerating PO +flatus/BMs, abd pain improved. pt stable and ready for dc w/ appropriate outpt f/u Minutes to complete discharge: 39 Discharge Summary Reason For Visit: CHOLECYSTITIS Current Active Problems Abdominal pain, acute, right upper quadrant (Acute) Calculus of gallbladder with acute cholecystitis with obstruction (Acute) Cholecystitis (Acute) Nausea and vomiting (Acute) Nausea and vomiting (Acute) Condition: Stable - Instructions Diet, Activity, Other Instructions: you had your gallbladder removed by surgeon Dr Torres because it was infected. Dr Torres has left you detailed discharge instructions below. However, please continue taking antibiotic Augmentin 875mg twice a day for 7 more days to help clear any residual infection Please resume your home meds Please follow up with your primary care physician within [address] Torres's Discharge Instructions Post Operative Instructions Physical activity Resume your normal everyday activity as tolerated no heavy lifting or exercise until seen by your surgeon. You may walk unlimited amounts of and climb stairs. You may resume driving the car when you feel safe and comfortable behind the wheel. Wound care You have skin glue on your incisions please do not peel them off. You may shower the day after surgery but do not submerge the incisions. Do not apply lotions or ointments to incisions. Diet There are no dietary restrictions. Eat healthy, high-fiber foods. Drink 6 to 8 glasses of liquid each day. This will assist in keeping your bowels are regular. Pain management You may take Tylenol or acetaminophen or Ibuprofen (for example, Motrin, Advil etc.) Any pain prescription medication ordered should be taken as prescribed for moderate to severe pain. Do not drink alcohol, drive or operate heavy machinery while taking narcotic pain medications. Call Dr. Torres for any of the following: Severe pain not relieved by medication Fever of 101 or higher Excessive bleeding or drainage on dressing Inability to urinate If you experience any chest pain or shortness of breath please seek emergency treatment immediately. Call the office at [phone] or [phone], to make an appointment. Referrals: Rufina Otto MD [Staff Physician] - 1 Week Aneesh Torres MD [Staff Physician] - 1 Week Disposition: HOME - Home Medications Comprehensive Discharge Medication List: Ambulatory Orders Acetaminophen [Tylenol .Regular Strength -] 650 mg PO Q6H PRN #0 tablet Vitamins (Sjr) - 1 tab PO DAILY #0 tablet 08/23/13 This patient is new to me today: Yes Date on this admission: 10/26/18 Emergency Visit: Yes ED Registration Date: 10/23/18 Care time: The patient presented to the Emergency Department on the above date and was hospitalized for further evaluation of their emergent condition. Critical Care patient: No - Discharge Referral Referred to [facility] No
--- NOTE | 2018-10-26 13:50 | PN ---
Progress Note, Physician History of Present Illness: stable doing well no issues drain still draining patient tolerating diet - Current Medication List Current Medications: Active Medications Acetaminophen (Tylenol -) 1,000 mg PO Q6H PRN PRN Reason: FEVER Last Admin: 10/24/18 17:53 Dose: 1,000 mg Heparin Sodium (Porcine) (Heparin -) 5,000 unit SQ TID LAUREEN Last Admin: 10/26/18 05:36 Dose: 5,000 unit Piperacillin Sod/Tazobactam (Sod 3.375 gm/ Dextrose) 50 mls @ 100 mls/hr IVPB Q6H-IV LAUREEN; Protocol Last Admin: 10/26/18 10:22 Dose: 100 mls/hr Ondansetron HCl (Zofran Injection) 4 mg IVPUSH Q6H PRN PRN Reason: NAUSEA Last Admin: 10/25/18 08:12 Dose: 4 mg Oxycodone HCl (Roxicodone -) 5 mg PO Q6H PRN PRN Reason: PAIN LEVEL 1-5 Last Admin: 10/26/18 10:22 Dose: 5 mg Oxycodone HCl (Roxicodone -) 10 mg PO Q6H PRN PRN Reason: PAIN LEVEL 6-10 Last Admin: 10/25/18 21:48 Dose: 10 mg - Objective Vital Signs: Vital Signs Temperature 98.1 F 10/26/18 06:05 Pulse Rate 92 H 10/26/18 06:05 Respiratory Rate 20 10/26/18 06:05 Blood Pressure 102/57 L 10/26/18 06:05 O2 Sat by Pulse Oximetry (%) 98 10/25/18 21:00 Constitutional: Yes: No Distress, Calm Cardiovascular: Yes: Regular Rate and Rhythm Respiratory: Yes: Regular, CTA Bilaterally Gastrointestinal: Yes: Normal Bowel Sounds, Soft, Other (drain tube in place--jace ) Musculoskeletal: Yes: WNL Extremities: Yes: WNL Neurological: Yes: Alert, Oriented Psychiatric: Yes: Alert, Oriented Labs: CBC, BMP 10/26/18 06:15 10/26/18 06:15 INR, PTT INR 1.17 (0.83-1.09) H 10/23/18 01:30 Assessment/Plan Problem List - Problems (1) Calculus of gallbladder with acute cholecystitis with obstruction Code(s): K80.01 - CALCULUS OF GALLBLADDER W ACUTE CHOLECYSTITIS W OBSTRUCTION Assessment/Plan Acute Cholecytitis with obstruction s/p cholecystectomy/ drainage GB empyema Fever patient can be switched to augmentin on discharge await for surgical team plan for the jace tube rest as per the team
[2018-10-26] MEDS ORDERED: ACETAMINOPHEN 325 MG TABLET (FP) PO ONE (14:22)
--- NOTE | 2018-10-26 15:36 | PN ---
Teaching Attending Note Name of Resident: Satish Lopez ATTENDING PHYSICIAN STATEMENT I saw and evaluated the patient. I reviewed the resident's note and discussed the case with the resident. I agree with the resident's findings and plan as documented. SUBJECTIVE: Abdominal discomfort, mostly RUQ, improving. Improved nausea, no further vomiting. No fever/chills. Passing flatus/BMs. Tolerating oral intake. OBJECTIVE: Fever - Afebrile, Hemodynamically Stable. Last Vital Signs Temp Pulse Resp BP Pulse Ox 98.1 F 92 H 20 102/57 L 98 10/26/18 06:05 10/26/18 06:05 10/26/18 06:05 10/26/18 06:05 10/25/18 21:00 Heart - S1, S2, RRR Lungs - clear to auscultation Abdomen - RUQ tenderness, Soft. MERRITT drain in situ draining sero-sanguinous fluid. Bowel Sounds normal. Extremities - No edema, no calf tenderness. Laboratory Results - last 24 hr 10/26/18 10/26/18 06:15 06:15 WBC 7.7 RBC 4.02 Hgb 11.6 Hct 34.9 MCV 86.8 MCH 28.9 MCHC 33.3 RDW 13.7 Plt Count 197 MPV 10.0 Absolute Neuts (auto) 5.1 Neutrophils % 66.6 Lymphocytes % 20.8 D Monocytes % 9.1 Eosinophils % 3.1 D Basophils % 0.4 Nucleated RBC % 0 Sodium 140 Potassium 3.5 Chloride 106 Carbon Dioxide 25 Anion Gap 9 BUN 8 Creatinine 0.6 Creat Clearance w eGFR 111.88 Random Glucose 104 Calcium 7.9 L Phosphorus 2.7 Magnesium 2.1 Total Bilirubin 0.4 AST 16 ALT 33 Alkaline Phosphatase 59 Total Protein 6.4 Albumin 2.9 L Current Medications Generic Name Dose Route Start Last Admin Trade Name Freq PRN Reason Stop Dose Admin Acetaminophen 1,000 mg 10/24/18 17:42 10/24/18 17:53 Tylenol - PO 1,000 mg Q6H PRN Administration FEVER Heparin Sodium (Porcine) 5,000 unit 10/24/18 22:00 10/26/18 14:37 Heparin - SQ 5,000 unit TID LAUREEN Administration Piperacillin Sod/Tazobactam 50 mls @ 100 mls/hr 10/24/18 15:30 10/26/18 10:22 Sod 3.375 gm/ Dextrose IVPB 100 mls/hr Q6H-IV LAUREEN Administration Protocol Ondansetron HCl 4 mg 10/23/18 21:52 10/25/18 08:12 Zofran Injection IVPUSH 4 mg Q6H PRN Administration NAUSEA Oxycodone HCl 5 mg 10/23/18 21:35 10/26/18 10:22 Roxicodone - PO 5 mg Q6H PRN Administration PAIN LEVEL 1-5 Oxycodone HCl 10 mg 10/23/18 21:35 10/25/18 21:48 Roxicodone - PO 10 mg Q6H PRN Administration PAIN LEVEL 6-10 ASSESSMENT/PLAN: 38 year old female with 2 month history of intermittent abdominal discomfort, presents with 3 day history of progressively worsening RUQ/Epigastric pain with associated nausea and vomiting, found to have acute cholecystitis. She was recently seen by Gastroenterology and prescribed Nexium and Reglan, with little effect on symptoms. 1. Acute Cholecystitis s/p Cholecystectomy with MERRITT drain in situ Abdominal US - 2.3cm stone in GB neck with GB wall thickening Operative report suggests empyema of GB with extensive adhesions to stomach and duodenum. Bile Cx neg so far Blood Cx negative Fever resolved Received 3 days IV Zosyn - for 7 additional days of Augmentin on discharge later today after Surgery pulls MERRITT drain. Afebrile, Hemodynamically Stable. Tolerating Advanced diet. Medically stable for discharge after MERRITT drain is removed by Surgery. 2. Electrolyte Abnormalities - Hypokalemia/Hypophosphatemia - resolved s/p repletion. DVT Px - Heparin SQ
--- NOTE | 2018-10-26 16:06 | PN ---
Progress Note, Physician - Current Medication List Current Medications: Active Medications Acetaminophen (Tylenol -) 1,000 mg PO Q6H PRN PRN Reason: FEVER Last Admin: 10/24/18 17:53 Dose: 1,000 mg Heparin Sodium (Porcine) (Heparin -) 5,000 unit SQ TID LAUREEN Last Admin: 10/26/18 14:37 Dose: 5,000 unit Piperacillin Sod/Tazobactam (Sod 3.375 gm/ Dextrose) 50 mls @ 100 mls/hr IVPB Q6H-IV LAUREEN; Protocol Last Admin: 10/26/18 10:22 Dose: 100 mls/hr Ondansetron HCl (Zofran Injection) 4 mg IVPUSH Q6H PRN PRN Reason: NAUSEA Last Admin: 10/25/18 08:12 Dose: 4 mg Oxycodone HCl (Roxicodone -) 5 mg PO Q6H PRN PRN Reason: PAIN LEVEL 1-5 Last Admin: 10/26/18 10:22 Dose: 5 mg Oxycodone HCl (Roxicodone -) 10 mg PO Q6H PRN PRN Reason: PAIN LEVEL 6-10 Last Admin: 10/25/18 21:48 Dose: 10 mg - Objective Vital Signs: Vital Signs Temperature 98.1 F 10/26/18 06:05 Pulse Rate 92 H 10/26/18 06:05 Respiratory Rate 20 10/26/18 06:05 Blood Pressure 102/57 L 10/26/18 06:05 O2 Sat by Pulse Oximetry (%) 98 10/25/18 21:00 Labs: CBC, BMP 10/26/18 06:15 10/26/18 06:15 INR, PTT INR 1.17 (0.83-1.09) H 10/23/18 01:30 Problem List - Problems (1) Calculus of gallbladder with acute cholecystitis with obstruction Code(s): K80.01 - CALCULUS OF GALLBLADDER W ACUTE CHOLECYSTITIS W OBSTRUCTION (2) Nausea and vomiting Code(s): R11.2 - NAUSEA WITH VOMITING, UNSPECIFIED (3) Abdominal pain, acute, right upper quadrant Code(s): R10.11 - RIGHT UPPER QUADRANT PAIN Assessment/Plan Surgery: Patient is comfortable. Abdomen is soft , tolerating oral feeding. Minimal serous drainage from drain. drain removed. Labs : Normal. Plan : Discharge home, Follow up in my office. Continue oral antibiotics.
--- NOTE | 2018-10-26 16:09 | PN ---
Progress Note, Physician - Current Medication List Current Medications: Active Medications Acetaminophen (Tylenol -) 1,000 mg PO Q6H PRN PRN Reason: FEVER Last Admin: 10/24/18 17:53 Dose: 1,000 mg Heparin Sodium (Porcine) (Heparin -) 5,000 unit SQ TID LAUREEN Last Admin: 10/26/18 14:37 Dose: 5,000 unit Piperacillin Sod/Tazobactam (Sod 3.375 gm/ Dextrose) 50 mls @ 100 mls/hr IVPB Q6H-IV LAUREEN; Protocol Last Admin: 10/26/18 10:22 Dose: 100 mls/hr Ondansetron HCl (Zofran Injection) 4 mg IVPUSH Q6H PRN PRN Reason: NAUSEA Last Admin: 10/25/18 08:12 Dose: 4 mg Oxycodone HCl (Roxicodone -) 5 mg PO Q6H PRN PRN Reason: PAIN LEVEL 1-5 Last Admin: 10/26/18 10:22 Dose: 5 mg Oxycodone HCl (Roxicodone -) 10 mg PO Q6H PRN PRN Reason: PAIN LEVEL 6-10 Last Admin: 10/25/18 21:48 Dose: 10 mg - Objective Vital Signs: Vital Signs Temperature 98.1 F 10/26/18 06:05 Pulse Rate 92 H 10/26/18 06:05 Respiratory Rate 20 10/26/18 06:05 Blood Pressure 102/57 L 10/26/18 06:05 O2 Sat by Pulse Oximetry (%) 98 10/25/18 21:00 Labs: CBC, BMP 10/26/18 06:15 10/26/18 06:15 INR, PTT INR 1.17 (0.83-1.09) H 10/23/18 01:30 Problem List - Problems (1) Calculus of gallbladder with acute cholecystitis with obstruction Code(s): K80.01 - CALCULUS OF GALLBLADDER W ACUTE CHOLECYSTITIS W OBSTRUCTION (2) Nausea and vomiting Code(s): R11.2 - NAUSEA WITH VOMITING, UNSPECIFIED (3) Nausea and vomiting Code(s): R11.2 - NAUSEA WITH VOMITING, UNSPECIFIED (4) Abdominal pain, acute, right upper quadrant Code(s): R10.11 - RIGHT UPPER QUADRANT PAIN
[2018-10-26 18:09] VITALS: BP 112/62; PULSE 90; TEMP 98
--- NOTE | 2018-10-27 17:02 | PATH ---
Surgical Pathology Report Patient Name: VIRGEN MIX [facility]. Rec. #: [id number] /Age/Gender: 1980 (Age: 38) / F Account: [id number] Location: [address] [place] [address] Taken: 10/23/2018 Received: 10/26/2018 Reported: 10/27/2018 Physicians: Christos Sellers MD Specimen(s) Received GALLBLADDER Clinical History Cholecystitis Final Diagnosis GALLBLADDER, CHOLECYSTECTOMY: ACUTE SUPERIMPOSED ON CHRONIC CHOLECYSTITIS. CHOLELITHIASIS. Electronically Signed Kelli Crooks M.D. Gross Description Received in formalin, labeled "gallbladder," is a 10.0 x 3.8 x 2.7 cm. gallbladder with a 0.2 cm. in length portion of cystic duct attached. The outer surface is hancock-pink and varies from smooth to shaggy. The lumen contains brown, gelatinous bile as well as multiple yellow, irregular choleliths ranging from 0.4-2.5 cm in greatest dimension. The mucosa is brown and velvety. The wall of the gallbladder ranges from 0.1-0.6 cm. in thickness. Medication Nurse sections are submitted in one cassette. /10/26/201810/26/2018
== END 2018-10-26 18:03 | disposition home or self-care (01) | DRG 263 ==
LOC: JER 20:49 → JERBED 10-23 01:58 → J5S 10-23 03:28
PROVIDERS: ADMIT Internal Medicine
PROC: 0DN94ZZ Release Duodenum, Percutaneous Endoscopic Approach (ICD-10-PCS; 2018-10-23)
PROC: 0DN64ZZ Release Stomach, Percutaneous Endoscopic Approach (ICD-10-PCS; 2018-10-23)
PROC: 0FT44ZZ Resection of Gallbladder, Percutaneous Endoscopic Approach (ICD-10-PCS; principal; 2018-10-23 16:30)
DX: K80.01 Calculus of gallbladder with acute cholecystitis with obstruction (principal); R11.2 Nausea with vomiting, unspecified; K21.9 Gastro-esophageal reflux disease without esophagitis; E83.39 Other disorders of phosphorus metabolism; R50.9 Fever, unspecified; E87.6 Hypokalemia
CPT/HCPCS: 36415; 71046-TC-FY; 76705-TC; 80053; 82550; 83690; 83735; 84100; 84484; 84703; 85025; 85610; 85730; 86850; 86900; 86901; 87040; 87070; 87075; 87205; 88304-TC; 93005; 93010; 94010; 94760; 99285-25; J0131; J1644; J7030; Q0162

== ENCOUNTER 2021-11-27 21:20 | Inpatient (IN) | payer BC, OTHER ==
[2021-11-27] MEDS ORDERED: MAG HYDROX/AL HYDROX/SIMETH 30 ML UNIT-DOSE CUP PO ONE (22:33)
[2021-11-27] MEDS ORDERED: SUCRALFATE 1 GM TABLET (FP) PO ONE (22:33)
[2021-11-27] MEDS ORDERED: ACETAMINOPHEN 1000 MG/100 ML BAG IVPB ONE (22:33)
[2021-11-27] MEDS ORDERED: ONDANSETRON 4 MG/2 ML VIAL IVPUSH ONE (22:33)
[2021-11-27] MEDS ORDERED: FAMOTIDINE 20 MG/50 ML IVPB 20 MG/50 ML MG IVPB ONE (22:33)
[2021-11-27] MEDS ORDERED: LACTATED RINGERS SOLUTION 1000 ML INFUS.BAG IV ONE (22:33)
[2021-11-27] MEDS ORDERED: MAG HYDROX/AL HYDROX/SIMETH 30 ML UNIT-DOSE CUP ONE (22:57)
[2021-11-27] MEDS ORDERED: ACETAMINOPHEN INJECTION 100 ML IVPB ONE (22:57)
[2021-11-27] MEDS ORDERED: SUCRALFATE 1 GM TABLET (FP) ONE (22:57)
[2021-11-27] MEDS ORDERED: ONDANSETRON 4 MG/2 ML VIAL ONE (22:57)
[2021-11-27 22:58] LABS: BASO % 0.5 % (0-2.0); EOS % 0.4 % (0-4.5); HEMATOCRIT 37.5 % (32.4-45.2); HEMOGLOBIN 12.8 GM/dL (10.7-15.3); LYMPH % 11.9 % (8-40); MCH 28.6 pg (25.7-33.7); MEAN CELL VOLUME 84.2 fl (80-96); MEAN PLT VOLUME 9.8 fl (7.5-11.1); MONO % 5.9 % (3.8-10.2); NEUT % 81.3 % (42.8-82.8); PLATELET COUNT 202 10^3/uL (134-434); RBC 4.46 M/mm3 (3.60-5.2); RDW 14.1 % (11.6-15.6); WHITE BLOOD COUNT 11.7 K/mm3 (4.0-10.0)
[2021-11-27] MEDS ORDERED: FAMOTIDINE 10 MG/ML VIAL IVPB ONE (22:58)
[2021-11-27 23:18] LABS: BLOOD UREA NITROGEN 16.3 mg/dL (7-18); CALCIUM 9.2 mg/dL (8.5-10.1)
[2021-11-27 23:19] LABS: ALBUMIN 3.8 g/dl (3.4-5.0)
[2021-11-27 23:23] LABS: BILIRUBIN,TOTAL 0.2 mg/dL (0.2-1); TOT PROT 7.7 g/dl (6.4-8.2)
[2021-11-27 23:51] LABS: EPI CELLS 17 /uL (0-25.1); HCG,QUALITATIVE URINE Negative; HYALINE CASTS 1 /uL (0-3.1); PH,URINE 5.5 (5.0-8.0); URINE APPEARANCE CLEAR; URINE BACTERIA 708 /uL (0-1359); URINE BILIRUBIN NEGATIVE (NEGATIVE); URINE COLOR YELLOW; URINE GLUCOSE (UA) NEGATIVE (NEGATIVE); URINE KETONE NEGATIVE (NEGATIVE); URINE LEUK ESTERASE NEGATIVE (NEGATIVE); URINE NITRITE NEGATIVE (NEGATIVE); URINE PROTEIN NEGATIVE (NEGATIVE); URINE RBC 29 /uL (0-23.9); URINE UROBILINOGEN 0.2 mg/dL (0.2-1.0); URINE WBC 19 /uL (0-25.8)
[2021-11-28] MEDS ORDERED: KETOROLAC TROMETHAMINE 15 MG/ML VIAL IVPUSH ONE (00:40)
[2021-11-28] MEDS ORDERED: KETOROLAC TROMETHAMINE 15 MG/ML VIAL ONE ×2 (00:51→00:53)
[2021-11-28] MEDS ORDERED: ONDANSETRON 4 MG/2 ML VIAL IVPUSH PRN ×2 (02:45→18:58)
[2021-11-28] MEDS ORDERED: SODIUM CHLORIDE 1,000 ML IV SCH ×2 (02:45→18:58)
[2021-11-28] MEDS ORDERED: TAMSULOSIN HCL 0.4 MG CAP PO ONE (02:46)
[2021-11-28] MEDS ORDERED: TAMSULOSIN HCL 0.4 MG CAP ONE (02:55)
[2021-11-28] MEDS ORDERED: CEFTRIAXONE 1 GM/50 ML BAG ONE (03:02)
[2021-11-28] MEDS ORDERED: CEFTRIAXONE 1 GM in DEXTROSE 5%-WATER - 50 ML IVPB SCH (04:00)
[2021-11-28 05:29] VITALS: BMI 31.1
[2021-11-28] MEDS: ACETAMINOPHEN 1000 MG/100 ML BAG IVPB PRN ×2 (08:23→14:56)
[2021-11-28 09:00] LABS: BASO % 0.2 % (0-2.0); EOS % 1.3 % (0-4.5); HEMATOCRIT 35.8 % (32.4-45.2); LYMPH % 25.8 % (8-40); MCH 28.5 pg (25.7-33.7); MCHC 33.6 g/dl (32.0-36.0); MEAN CELL VOLUME 84.9 fl (80-96); MEAN PLT VOLUME 10.2 fl (7.5-11.1); MONO % 8.9 % (3.8-10.2); NEUT % 63.8 % (42.8-82.8); PLATELET COUNT 199 10^3/uL (134-434); RBC 4.21 M/mm3 (3.60-5.2); RDW 14.4 % (11.6-15.6); WHITE BLOOD COUNT 8.9 K/mm3 (4.0-10.0)
[2021-11-28 09:27] LABS: CALCIUM 8.4 mg/dL (8.5-10.1)
[2021-11-28 09:28] LABS: ALBUMIN 3.1 g/dl (3.4-5.0); BLOOD UREA NITROGEN 13.2 mg/dL (7-18)
[2021-11-28 09:31] LABS: PHOSPHOROUS 3.6 mg/dL (2.5-4.9)
[2021-11-28 09:33] LABS: BILIRUBIN,TOTAL 0.3 mg/dL (0.2-1); CREATININE 0.8 mg/dL (0.55-1.3); TOT PROT 6.4 g/dl (6.4-8.2)
[2021-11-28] MEDS ORDERED: PROPOFOL 20 ML ONE ×2 (17:26→18:13)
[2021-11-28] MEDS ORDERED: MIDAZOLAM HCL 2 MG/2 ML SINGLE DOSE VIAL ONE (17:26)
[2021-11-28] MEDS ORDERED: ACETAMINOPHEN 325 MG TABLET (FP) PO PRN (18:18)
[2021-11-28] MEDS ORDERED: METOCLOPRAMIDE HCL INJECTION 10 MG/2 ML VIAL ONE (18:20)
[2021-11-28] MEDS ORDERED: KETOROLAC TROMETHAMINE 30 MG/1 ML VIAL ONE (18:44)
[2021-11-28] MEDS ORDERED: ACETAMINOPHEN 1000 MG/100 ML BAG IVPB PRN (18:58)
[2021-11-28] MEDS: ACETAMINOPHEN WITH CODEINE 300MG/30MG TABLET PO PRN (21:36)
[2021-11-29] MEDS: ACETAMINOPHEN WITH CODEINE 300MG/30MG TABLET PO PRN ×2 (03:30→08:05)
[2021-11-29 06:59] VITALS: BP 105/59; PULSE 82; TEMP 98.6
[2021-11-29] MEDS ORDERED: TAMSULOSIN HCL 0.4 MG CAP PO SCH (08:30)
[2021-11-29 09:39] LABS: BASO % 0.1 % (0-2.0); HEMATOCRIT 35.4 % (32.4-45.2); HEMOGLOBIN 11.9 GM/dL (10.7-15.3); LYMPH % 13.1 % (8-40); MCH 28.6 pg (25.7-33.7); MCHC 33.6 g/dl (32.0-36.0); MEAN PLT VOLUME 10.5 fl (7.5-11.1); MONO % 6.7 % (3.8-10.2); NEUT % 80.1 % (42.8-82.8); PLATELET COUNT 219 10^3/uL (134-434); RBC 4.17 M/mm3 (3.60-5.2); RDW 14.4 % (11.6-15.6); WHITE BLOOD COUNT 9.4 K/mm3 (4.0-10.0)
[2021-11-29 09:46] LABS: INR 1.21 (0.83-1.09)
[2021-11-29 09:49] LABS: ACTIVATED PTT 28.3 SECONDS (25.2-36.5)
[2021-11-29 10:13] LABS: ALBUMIN 3.1 g/dl (3.4-5.0)
[2021-11-29 10:14] LABS: CALCIUM 8.4 mg/dL (8.5-10.1)
[2021-11-29 10:15] LABS: CREATININE 0.6 mg/dL (0.55-1.3); PHOSPHOROUS 3.1 mg/dL (2.5-4.9)
[2021-11-29 10:16] LABS: TOT PROT 6.7 g/dl (6.4-8.2)
[2021-11-29 10:17] LABS: BILIRUBIN,TOTAL 0.4 mg/dL (0.2-1)
== END 2021-11-29 14:29 | disposition home or self-care (01) | DRG 465 ==
LOC: JER 21:20 → JERBED 11-28 01:56 → J8W 11-28 04:48
PROVIDERS: ADMIT Hospitalist; ATTEND Internal Medicine
PROC: 0T778DZ Dilation of Left Ureter with Intraluminal Device, Via Natural or Artificial Opening Endoscopic (ICD-10-PCS; principal; 2021-11-28 17:30)
PROC: BT1FZZZ Fluoroscopy of Left Kidney, Ureter and Bladder (ICD-10-PCS; 2021-11-28 17:30)
DX: N13.2 Hydronephrosis with renal and ureteral calculous obstruction (principal); N17.9 Acute kidney failure, unspecified; R10.12 Left upper quadrant pain
CPT/HCPCS: 36415; 74176-TC; 76000-TC-FY; 80053; 81003; 83735; 84100; 84703; 85025; 85610; 85730; 86850; 86900; 86901; 87086; 93005; 93010; 94760; 99285-25; C9803-CS; U0003; U0005

== ENCOUNTER 2022-01-07 04:43 | Day surgery (SDC) | payer BC ==
[2022-01-04 14:08] VITALS: BMI 30.1
[2022-01-07] MEDS ORDERED: MIDAZOLAM HCL 2 MG/2 ML SINGLE DOSE VIAL ONE ×2 (15:55→16:22)
[2022-01-07] MEDS ORDERED: PROPOFOL 20 ML ONE (16:02)
[2022-01-07 18:26] VITALS: BP 106/74; PULSE 79; TEMP 98
== END 2022-01-07 17:50 | disposition home or self-care (01) ==
LOC: JASU-SURG 04:43
PROVIDERS: ATTEND Urology
PROC: 0TF4XZZ Fragmentation in Left Kidney Pelvis, External Approach (ICD-10-PCS; principal; 2022-01-07 16:30)
DX: N20.0 Calculus of kidney (principal)
CPT/HCPCS: 81025

== ENCOUNTER 2022-11-03 08:22 | Emergency (ER) | payer BC, OTHER ==
[2022-11-03 08:35] VITALS: BP 103/71; PULSE 132; RESP 18; BMI 28.3
[2022-11-03] MEDS ORDERED: IBUPROFEN 600 MG TABLET (FP) PO ONE ×2 (09:46→10:11)
[2022-11-03] MEDS ORDERED: ONDANSETRON *ODT* 4 MG TABLET SL ONE (09:46)
[2022-11-03] MEDS ORDERED: ONDANSETRON *ODT* 4 MG TABLET ONE (10:11)
[2022-11-03] MEDS ORDERED: DEXAMETHASONE SOD PHOSPHATE 10 MG/1 ML VIAL IVPUSH ONE (10:42)
[2022-11-03] MEDS ORDERED: DEXAMETHASONE SOD PHOSPHATE 10 MG/1 ML VIAL ONE (10:47)
[2022-11-03] MEDS ORDERED: PENICILLIN G BENZATHINE 1,200,000 UNIT/2 ML PFS IM ONE ×2 (10:55→11:17)
[2022-11-03 12:07] VITALS: TEMP 100
== END 2022-11-03 12:20 | disposition home or self-care (01) ==
LOC: JER 08:22 → JERFT 08:22
PROC: 3E033GC Introduction of Other Therapeutic Substance into Peripheral Vein, Percutaneous Approach (ICD-10-PCS; principal; 2022-11-03)
PROC: 3E02329 Introduction of Other Anti-infective into Muscle, Percutaneous Approach (ICD-10-PCS; 2022-11-03)
DX: J02.0 Streptococcal pharyngitis (principal); H92.01 Otalgia, right ear; M79.10 Myalgia, unspecified site; R11.2 Nausea with vomiting, unspecified; R50.9 Fever, unspecified; Z20.822 Contact with and (suspected) exposure to COVID-19
CPT/HCPCS: 0241U-QW; 87070; 87077; 87651; 99284-25; J1100; Q0162

== ENCOUNTER 2023-08-15 12:48 | Emergency (ER) | payer BC ==
[2023-08-15 13:04] VITALS: BP 113/77; PULSE 66; RESP 18; TEMP 97.1; BMI 28.7
[2023-08-15] MEDS ORDERED: ACETAMINOPHEN 1000 MG/100 ML BAG IVPB ONE (13:58)
[2023-08-15] MEDS ORDERED: SODIUM CHLORIDE 0.9% 500 ML INFUS.BAG IV ONE (13:58)
[2023-08-15] MEDS ORDERED: ONDANSETRON 4 MG/2 ML VIAL IVPUSH ONE (14:11)
[2023-08-15] MEDS ORDERED: ACETAMINOPHEN INJECTION 100 ML IVPB ONE (14:39)
[2023-08-15] MEDS ORDERED: ONDANSETRON 4 MG/2 ML VIAL ONE (14:39)
[2023-08-15 14:46] LABS: URINE APPEARANCE CLEAR; URINE BILIRUBIN NEGATIVE (NEGATIVE); URINE COLOR YELLOW; URINE GLUCOSE (UA) NEGATIVE (NEGATIVE); URINE KETONE NEGATIVE (NEGATIVE); URINE LEUK ESTERASE NEGATIVE (NEGATIVE); URINE NITRITE NEGATIVE (NEGATIVE); URINE PROTEIN NEGATIVE (NEGATIVE); URINE UROBILINOGEN 0.2 mg/dL (0.2-1.0)
[2023-08-15 15:35] LABS: BASO % 0.5 % (0-2.0); EOS % 1.5 % (0-4.5); HEMOGLOBIN 13.9 GM/dL (10.7-15.3); LYMPH % 26.4 % (8-40); MCH 28.3 pg (25.7-33.7); MEAN CELL VOLUME 85.9 fl (80-96); MEAN PLT VOLUME 9.7 fl (7.5-11.1); MONO % 7.5 % (3.8-10.2); NEUT % 64.1 % (42.8-82.8); PLATELET COUNT 243 10^3/uL (134-434); RBC 4.89 M/mm3 (3.60-5.2); RDW 14.3 % (11.6-15.6); WHITE BLOOD COUNT 11.3 K/mm3 (4.0-10.0)
[2023-08-15 15:49] LABS: POTASSIUM 3.9 mmol/L (3.5-5.1)
[2023-08-15 15:51] LABS: CALCIUM 9.3 mg/dL (8.5-10.1)
[2023-08-15 15:52] LABS: ALBUMIN 3.7 g/dl (3.4-5.0); BLOOD UREA NITROGEN 16.4 mg/dL (7-18)
[2023-08-15 15:55] LABS: CREATININE 0.7 mg/dL (0.55-1.3)
[2023-08-15 15:56] LABS: BILIRUBIN,TOTAL 0.3 mg/dL (0.2-1)
[2023-08-15 15:57] LABS: TOT PROT 8.1 g/dl (6.4-8.2)
== END 2023-08-15 16:35 | disposition home or self-care (01) ==
LOC: JER 12:48
PROC: 3E033NZ Introduction of Analgesics, Hypnotics, Sedatives into Peripheral Vein, Percutaneous Approach (ICD-10-PCS; principal; 2023-08-15)
PROC: 3E033GC Introduction of Other Therapeutic Substance into Peripheral Vein, Percutaneous Approach (ICD-10-PCS; 2023-08-15)
DX: R10.32 Left lower quadrant pain (principal); N83.202 Unspecified ovarian cyst, left side; R11.0 Nausea; R19.7 Diarrhea, unspecified
CPT/HCPCS: 36415; 76830-TC; 80053; 81003; 84703; 85025; 87070; 87086; 87205; 87491; 87591; 87661; 99284-25